=== PATIENT | female | born 1995 | race Caucasian/White ===

== ENCOUNTER 2018-05-29 08:09 | Emergency (ER) | payer OTHER, SELFPAY ==
[2018-05-29 08:10] VITALS: BP 122/71; PULSE 76; RESP 12; TEMP 36.4; BMI 20.7
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
== END 2018-05-29 08:44 | disposition home or self-care (01) ==
LOC: ED 08:28
PROVIDERS: Emergency Provider Emergency Medicine
DX: S39.012A Strain of muscle, fascia and tendon of lower back, initial encounter (principal); S29.012A Strain of muscle and tendon of back wall of thorax, initial encounter; V49.49XA Driver injured in collision with other motor vehicles in traffic accident, initial encounter; Y93.9 Activity, unspecified; Y92.410 Unspecified street and highway as the place of occurrence of the external cause; Y99.9 Unspecified external cause status
CPT/HCPCS: 99282

== ENCOUNTER → 2018-07-08 08:19 | Outpatient (CLI) | payer OTHER, SELFPAY ==
[2018-07-08 10:30] VITALS: BMI 22.3
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
== END ==
PROVIDERS: Referring Provider Physician Assistant Medical; Visit Provider Physician Assistant Medical
DX: J02.9 Acute pharyngitis, unspecified (principal)
CPT/HCPCS: 87081

== ENCOUNTER 2019-04-02 12:33 | Emergency (ER) | payer OTHER, SELFPAY ==
[2018-07-08 10:30] VITALS: BMI 22.3
[2019-04-02 12:34] VITALS: BP 136/70; PULSE 90; RESP 16; TEMP 36.8; O2SAT 99; BMI 23.6
--- NOTE | 2019-04-02 12:53 | EKG12_ITS ---
Test Reason : CP Blood Pressure : / mmHG Vent. Rate : 078 BPM Atrial Rate : 078 BPM P-R Int : 122 ms QRS Dur : 092 ms QT Int : 384 ms P-R-T Axes : 021 092 063 degrees QTc Int : 437 ms Normal sinus rhythm Rightward axis Borderline ECG Confirmed by SAÚL ESTEVEZ, STEPHAN ([id number]), newspaper editor SHELBI YOUNGBLOOD ([id number]) on 04/03/2019 9:24:28 AM Referred By: MICHAEL Confirmed By:STEPHAN HAYS MD
--- NOTE | 2019-04-02 12:53 | RAD_ITS ---
STUDY: X-RAY CHEST REASON FOR EXAM: Female, 23 years old. 4 day history of left-sided chest pain. TECHNIQUE: PA and lateral views of the chest. COMPARISON: None. FINDINGS: EKG electrodes are seen. The lungs are clear and expanded. There is no demonstrated pleural abnormality. Normal size heart. Normal mediastinum and dwayne. Normal visualized pulmonary arteries. Normal visualized aortic arch and descending thoracic aorta. Normal visualized thoracic spine. Normal visualized ribs, clavicles, and shoulders. There is no demonstrated abnormality of the visualized soft tissue structures of the upper abdomen. RAD/Chest PA and Lateral IMPRESSION: Normal x-ray examination of the chest. Electronically Signed: Baldo Shah, at 13:46 EDT , Service support ,
[2019-04-02 13:10] VITALS: O2SAT 99
[2019-04-02 13:22] LABS: Absolute Lymphocyte Count 1.96 X10^3/uL (0.83-4.51); Absolute Neutrophil Count 6.1 X10^3/uL (2.0-7.7); Basophil# 0.05 X10^3/uL; Basophil% 0.6 % (0-1); Eosinophil# 0.08 X10^3/uL; Eosinophils% 0.9 % (0-5); Hemoglobin 13.4 g/dL (12.0-15.0); Lymphocyte # 1.96 X10^3/ul (4.0); Lymphocyte % 22.4 % (19-41); Mean Corp Hgb Conc 32.7 g/dL (32-36); Mean Corpuscular Hgb 30.3 pg (27.0-32.0); Mean Corpuscular Volume 92.8 fL (81-99); Mean Platelet Vol. 12.1 fl (6.2-12.0); Monocyte# 0.53 X10^3/uL; Monocyte% 6.1 % (0-10); NRBC Flagged by Analyzer 0 % (0-5); Neutrophil % 69.7 % (47-70); Platelet Count 216 K/mm3 (150-450); RBC Distribution Width SD 41.4 fl (35.1-43.9); Red Blood Count 4.42 M/mm3 (4.2-5.4); White Blood Count 8.8 K/mm3 (4.4-11.0)
[2019-04-02 13:34] LABS: D-Dimer Quantitative (DVT/PE) < 0.27 FEU/ug/m (0.27-0.49)
[2019-04-02 13:40] LABS: Anion Gap 8 (5-15); BUN 12 mg/dL (7-18); BUN/Creat Ratio 15.8 RATIO (10-20); Chloride 109 mmol/L (98-107); Creatinine, Serum 0.76 mg/dL (0.55-1.02); EST Glomerular Filtration Rate 102 mL/min (>60); Est Glom Filt Rate - Afr Amer 123 mL/min (>60); Estimated Creatinine Clearance 105.36 ml/min; Glucose 83 mg/dL (74-106); Potassium 3.6 mmol/L (3.5-5.1); Sodium Level 144 mmol/L (136-145)
[2019-04-02 13:52] VITALS: BP 126/68; PULSE 80; RESP 18; O2SAT 97
[2019-04-02 14:00] LABS: Internal QC Validated? YES +Cl - CLEAR BKGD; Pregnancy, Serum, hCG Quali. NEGATIVE Negative
--- NOTE | 2019-04-02 14:20 | ED.VISSUMM ---
- ER Visit Summary Date of Service: 04/02/19 Chief Complaint: Chest pain History of Present Illness: The patient is a 23 F who presents emergency department with left sided anterior chest pain. Patient states she has had this several times in the past and had it evaluated nothing is been found. This started 4 days ago and she states that initially felt very sharp. She states that it turns into a dull constant discomfort. Does not appear to be positional to sometimes painful to touch. No shortness of breath sputum production or fevers. No prior history of DVT PE. She is a non-smoker. Physical Examination: Afebrile vital signs are stable Gen: Well-nourished well-developed Head: Normocephalic atraumatic Eyes: Perrl EOMI ENT: TMs clear no rhinorrhea moist mucous membranes Neck: Supple no lymphadenopathy no JVD nontender CVS: Regular rate rhythm no murmurs normal S1-S2 Respiratory: No distress clear to auscultation bilaterally mild left upper anterior chest wall tenderness to palpation Abdomen: Soft nontender nondistended normal bowel sounds no masses Back: Nontender Extremity: Nontender no edema Skin: Normal color no rash Neuro: alert orientated ?3 CN II-XII intact normal strength sensation reflexes gait cerebellar Psych: Normal affect normal mood Test Results: EKG shows sinus rhythm at a rate is 78. CBC chemistries negative. Troponin d-dimer and hCG negative. Chest x-ray negative. Emergency Department Course and Treatment: I do not believe this to be cardiac aortic or pulmonary nature. It is most likely chest wall related. Pleurisy versus costochondritis picture. Encourage her to follow-up. We talked about the possibility of needing to obtain an echocardiogram and I would encourage her to follow-up with primary care. Impression: 1. Acute chest wall pain This note was generated with Kobo dictation software. It may contain incorrect words, spelling, and punctuation that were not noted in review of the chart prior to signing ED Disposition - Plan for ED Patient: Disposition: Home or Assisted Living Instructions: Pleurisy, CHEST PAIN, NonCardiac Referrals: Moses Zamora MD [STAFF PHYSICIAN] - As Needed
[2019-04-02 14:46] VITALS: BP 128/64; PULSE 71; RESP 15; O2SAT 98
== END 2019-04-02 14:47 | disposition home or self-care (01) ==
PROVIDERS: Emergency Provider Emergency Medicine
DX: R07.89 Other chest pain (principal)
CPT/HCPCS: 71046; 80048; 84484; 84703; 85025; 85379; 93005; 99284; A4216

== ENCOUNTER 2021-01-22 20:53 | Emergency (ER) | payer OTHER, SELFPAY ==
[2021-01-22 20:53] VITALS: BP 129/80; PULSE 105; RESP 18; TEMP 36.7; O2SAT 99; BMI 23.3
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
== END 2021-01-22 22:28 | disposition home or self-care (01) ==
PROVIDERS: Emergency Provider Emergency Medicine; PCP Nurse Practitioner Family
DX: S00.33XA Contusion of nose, initial encounter (principal); Y04.2XXA Assault by strike against or bumped into by another person, initial encounter; Y93.9 Activity, unspecified; Y92.89 Other specified places as the place of occurrence of the external cause; Y99.0 Civilian activity done for income or pay; Z79.899 Other long term (current) drug therapy
CPT/HCPCS: 99282

== ENCOUNTER 2021-08-10 10:23 | Outpatient (CLI) | payer OTHER, SELFPAY ==
[2021-08-10 11:33] LABS: Absolute Lymphocyte Count 1.75 X10^3/uL (0.83-4.51); Absolute Neutrophil Count 5.1 X10^3/uL (2.0-7.7); Basophil# 0.04 X10^3/uL; Basophil% 0.5 % (0-1); Eosinophil# 0.09 X10^3/uL; Eosinophils% 1.2 % (0-5); Hematocrit 35.6 % (37-47); Hemoglobin 11.7 g/dL (12.0-15.0); Lymphocyte # 1.75 X10^3/ul (0.83-4.51); Lymphocyte % 23.3 % (19-41); Mean Corp Hgb Conc 32.9 g/dL (32-36); Mean Corpuscular Hgb 29.6 pg (27.0-32.0); Mean Corpuscular Volume 90.1 fL (81-99); Mean Platelet Vol. 12.6 fl (6.2-12.0); Monocyte% 6.7 % (0-10); NRBC Flagged by Analyzer 0 % (0-5); Platelet Count 232 K/mm3 (150-450); RBC Distribution Width CV 11.8 % (11.6-14.6); RBC Distribution Width SD 38.7 fl (35.1-43.9); Red Blood Count 3.95 M/mm3 (4.2-5.4); White Blood Count 7.5 K/mm3 (4.4-11.0)
[2021-08-10 12:44] LABS: HIV - WCH Non-Reactive (Nonreactive); Hepatitis B Surface Antigen Non-Reactive (Nonreactive); Hepatitis C Antibody Non-Reactive (Nonreactive); Rubella IgG Reactive (Nonreactive); Syphilis Antibodies Non-reactive
[2021-08-10 18:32] LABS: Amphetamine Urine VISTA NEGATIVE (<1000 ng/mL); Barbiturate Urine VISTA NEGATIVE (< 200 ng/mL); Benzodiazepine Urine VISTA NEGATIVE (< 200 ng/mL); Cocaine Urine VISTA NEGATIVE (< 300 ng/mL); Ecstacy Urine VISTA NEGATIVE (< 500 ng/mL); Methadone Urine VISTA NEGATIVE (< 300 ng/mL); PCP Urine VISTA NEGATIVE (< 25 ng/mL); THC Urine VISTA NEGATIVE (< 50 ng/mL); Vista UDS pH Range 6
[2021-08-13 00:07] LABS: Chlamydia By Nucleic Acid AMP Negative (Negative)
[2021-08-13 08:36] LABS: Gonococcus By Nucleic Acid AMP Negative (Negative)
[2021-08-14 10:06] LABS: HPV Reflexed? NOT INDICATED
== END 2021-08-10 23:59 | disposition short-term general hospital (02) ==
PROVIDERS: PCP Nurse Practitioner Family; Referring Provider Obstetrics & Gynecology; Visit Provider Obstetrics & Gynecology
DX: Z34.90 Encounter for supervision of normal pregnancy, unspecified, unspecified trimester (principal)
CPT/HCPCS: 36415; 80307; 85025; 86703; 86762; 86780; 86803; 86850; 86900; 86901; 87086; 87340; 87491; 87591; 88175; G0145

== ENCOUNTER → 2021-12-25 | Outpatient (CLI) | payer OTHER, SELFPAY ==
[2021-12-25 08:37] LABS: Absolute Lymphocyte Count 1.59 X10^3/uL (0.83-4.51); Absolute Neutrophil Count 7.5 X10^3/uL (2.0-7.7); Basophil# 0.04 X10^3/uL; Basophil% 0.4 % (0-1); Eosinophil# 0.09 X10^3/uL; Eosinophils% 0.9 % (0-5); Hematocrit 31.4 % (37-47); Hemoglobin 10.5 g/dL (12.0-15.0); Lymphocyte # 1.59 X10^3/ul (0.83-4.51); Lymphocyte % 16.1 % (19-41); Mean Corp Hgb Conc 33.4 g/dL (32-36); Mean Corpuscular Volume 92.6 fL (81-99); Mean Platelet Vol. 11.1 fl (6.2-12.0); Monocyte# 0.48 X10^3/uL; Monocyte% 4.9 % (0-10); NRBC Flagged by Analyzer 0 % (0-5); Neutrophil # 7.53 X10^3/uL (2.7-7.7); Neutrophil % 76.5 % (47-70); Platelet Count 163 K/mm3 (150-450); RBC Distribution Width CV 12.9 % (11.6-14.6); RBC Distribution Width SD 43.8 fl (35.1-43.9); Red Blood Count 3.39 M/mm3 (4.2-5.4); White Blood Count 9.9 K/mm3 (4.4-11.0)
[2021-12-25 09:20] LABS: Glucose Challenge Gest 1H 50g 145 mg/dL (70-140)
== END | disposition home or self-care (01) ==
LOC: LAB 08:16
PROVIDERS: Obstetrics & Gynecology; PCP Nurse Practitioner Family; Referring Provider Obstetrics & Gynecology; Visit Provider Obstetrics & Gynecology
DX: Z34.92 Encounter for supervision of normal pregnancy, unspecified, second trimester (principal); Z13.1 Encounter for screening for diabetes mellitus
CPT/HCPCS: 36415; 82950; 85025

== ENCOUNTER 2021-12-28 08:40 | Outpatient (CLI) | payer OTHER, SELFPAY ==
[2021-12-28 08:57] VITALS: PULSE 89; O2SAT 99; BMI 28.7
[2021-12-28 08:59] VITALS: BP 130/71; PULSE 84
[2021-12-28 09:02] VITALS: PULSE 89; O2SAT 99
[2021-12-28 09:37] LABS: ROM Internal Control Test YES-OK TO RESULT pt. (Internal QC); ROM Patient Test Negative (Negative)
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
== END 2021-12-28 09:58 | disposition home or self-care (01) ==
LOC: WPOUT 08:47 → WP 08:48
PROVIDERS: PCP Nurse Practitioner Family; Referring Provider Obstetrics & Gynecology; Visit Provider Obstetrics & Gynecology
DX: O47.03 False labor before 37 completed weeks of gestation, third trimester (principal); O99.343 Other mental disorders complicating pregnancy, third trimester; F32.A Depression, unspecified; Z79.899 Other long term (current) drug therapy; Z3A.29 29 weeks gestation of pregnancy
CPT/HCPCS: 59025; 59050; 84112; 99218; G0378

== ENCOUNTER → 2022-01-07 | Outpatient (CLI) | payer OTHER, SELFPAY ==
[2022-01-07 10:31] LABS: Glucose GTT-Gestation. Fasting 82 mg/dL (<105)
[2022-01-07 11:44] LABS: Glucose GTT-Gestational 1 Hr 129 mg/dL (<190)
[2022-01-07 13:04] LABS: Glucose GTT-Gestational 2 Hr 123 mg/dL (<165)
[2022-01-07 13:34] LABS: Glucose GTT-Gestational 3 Hr 109 L (<145)
== END | disposition home or self-care (01) ==
LOC: LAB 09:43
PROVIDERS: PCP Nurse Practitioner Family; Visit Provider Obstetrics & Gynecology
DX: Z13.1 Encounter for screening for diabetes mellitus (principal)
CPT/HCPCS: 36415; 82951; 82952

== ENCOUNTER → 2022-02-15 | Outpatient (CLI) | payer OTHER, SELFPAY ==
[2022-02-15 09:28] LABS: Absolute Lymphocyte Count 1.53 X10^3/uL (0.83-4.51); Absolute Neutrophil Count 5.6 X10^3/uL (2.0-7.7); Basophil# 0.04 X10^3/uL; Basophil% 0.5 % (0-1); Eosinophil# 0.08 X10^3/uL; Hematocrit 33.6 % (37-47); Hemoglobin 11.2 g/dL (12.0-15.0); Lymphocyte # 1.53 X10^3/ul (0.83-4.51); Lymphocyte % 19.3 % (19-41); Mean Corp Hgb Conc 33.3 g/dL (32-36); Mean Corpuscular Hgb 31.4 pg (27.0-32.0); Mean Corpuscular Volume 94.1 fL (81-99); Mean Platelet Vol. 12.1 fl (6.2-12.0); Monocyte% 7.6 % (0-10); NRBC Flagged by Analyzer 0 % (0-5); Neutrophil # 5.59 X10^3/uL (2.7-7.7); Neutrophil % 70.3 % (47-70); Platelet Count 139 K/mm3 (150-450); RBC Distribution Width CV 13.4 % (11.6-14.6); RBC Distribution Width SD 46.4 fl (35.1-43.9); Red Blood Count 3.57 M/mm3 (4.2-5.4); White Blood Count 7.9 K/mm3 (4.4-11.0)
== END | disposition home or self-care (01) ==
LOC: LAB 08:48
PROVIDERS: PCP Nurse Practitioner Family; Referring Provider Obstetrics & Gynecology; Visit Provider Obstetrics & Gynecology
DX: D64.9 Anemia, unspecified (principal)
CPT/HCPCS: 36415; 85025

== ENCOUNTER → 2022-02-24 | Outpatient (CLI) | payer OTHER, SELFPAY | END | disposition home or self-care (01) | LOC: LABSPEC 10:45 | PROVIDERS: PCP Nurse Practitioner Family; Visit Provider Obstetrics & Gynecology | DX: Z34.02 Encounter for supervision of normal first pregnancy, second trimester (principal) | CPT/HCPCS: 87081 ==

== ENCOUNTER 2022-03-12 17:23 | Inpatient (IN) | payer OTHER, SELFPAY ==
[2022-03-12] VITALS (36 sets, daily range): BP systolic 117–156; BP diastolic 55–88; PULSE 67–90; TEMP 36.3–36.8; O2SAT 98–99; BMI 32.1
[2022-03-12 17:19] LABS: ROM Internal Control Test YES-OK TO RESULT pt. (Internal QC)
[2022-03-12 17:20] LABS: ROM Patient Test POSITIVE (Negative)
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
[2022-03-12] MEDS: Lactated Ringers 1,000 ML 50 ML IV (18:05)
[2022-03-12 18:57] LABS: Absolute Lymphocyte Count 1.83 X10^3/uL (0.83-4.51); Absolute Neutrophil Count 8.3 X10^3/uL (2.0-7.7); Basophil# 0.04 X10^3/uL; Basophil% 0.4 % (0-1); Eosinophil# 0.05 X10^3/uL; Eosinophils% 0.5 % (0-5); Hematocrit 33.8 % (37-47); Hemoglobin 11.6 g/dL (12.0-15.0); Lymphocyte # 1.83 X10^3/ul (0.83-4.51); Lymphocyte % 16.5 % (19-41); Mean Corp Hgb Conc 34.3 g/dL (32-36); Mean Corpuscular Hgb 31.1 pg (27.0-32.0); Mean Corpuscular Volume 90.6 fL (81-99); Mean Platelet Vol. 13.1 fl (6.2-12.0); Monocyte# 0.81 X10^3/uL; Monocyte% 7.3 % (0-10); NRBC Flagged by Analyzer 0 % (0-5); Neutrophil # 8.25 X10^3/uL (2.7-7.7); Neutrophil % 74.4 % (47-70); Platelet Count 139 K/mm3 (150-450); RBC Distribution Width CV 13.2 % (11.6-14.6); RBC Distribution Width SD 43.6 fl (35.1-43.9); Red Blood Count 3.73 M/mm3 (4.2-5.4); White Blood Count 11.1 K/mm3 (4.4-11.0)
[2022-03-12 19:06] LABS: Protein, Urine (Random) < 6.0 mg/dL (<11.9)
[2022-03-12] MEDS: LACTATED RINGERS 500 ML 999 ML IV ×2 (19:14→21:39)
[2022-03-12 20:01] LABS: ALB/GLOB Ratio 0.8 RATIO (0.9-2.4); AST(SGOT) 16 U/L (15-37); Alanine Aminotransfer ALT/SGPT 14 U/L (13-56); Albumin, Serum 2.9 g/dL (3.2-5.0); Alkaline Phosphatase 293 U/L (45-117); Anion Gap 9 (5-15); BUN 9 mg/dL (7-18); BUN/Creat Ratio 13.2 RATIO (10-20); Calcium,Total 9.1 mg/dL (8.5-10.1); Chloride 109 mmol/L (98-107); Creatinine, Serum 0.68 mg/dL (0.55-1.02); EST Glomerular Filtration Rate 113 mL/min (>60); Est Glom Filt Rate - Afr Amer 137 mL/min (>60); Estimated Creatinine Clearance 114.79 ml/min; Globulin 3.8 g/dL (2.2-4.2); Glucose 78 mg/dL (74-106); Potassium 3.6 mmol/L (3.5-5.1); Protein, Total 6.7 g/dL (6.4-8.2); Sodium Level 137 mmol/L (136-145); Uric Acid 5.5 mg/dL (2.6-6.0)
[2022-03-12] MEDS: fentaNYL-bupivacaine (epidural) 100 ML BAG EPIDURAL (22:42)
[2022-03-13] VITALS (25 sets, daily range): BP systolic 113–147; BP diastolic 61–88; PULSE 60–96; RESP 16–17; TEMP 36.4–37.1; O2SAT 96–99
[2022-03-13] MEDS: Lactated Ringers 1,000 ML 200 ML IV (02:31)
[2022-03-13] MEDS: fentaNYL-bupivacaine (epidural) 100 ML BAG EPIDURAL (04:17)
[2022-03-13] MEDS: Oxytocin 30 units/NS 500 ml 30 UNITS/500 ML IV.SOLN 334 UNITS IV (06:03)
--- NOTE | 2022-03-13 06:16 | EX.PCM.OBRPT ---
Assessment & Plan (1) Mild anemia: (2) Abnormal glucose affecting : COMMENT: abnormal 1 hr, needs 3 hr GCT (3) Supervision of normal : QUALIFIERS: Normal : normal first Trimester: second trimester Qualified Code(s): Z34.02 - Encounter for supervision of normal first , second trimester COMMENT: PRR PRABHA: 03/17/22 surprise Spouse: Antonio (4) : QUALIFIERS: Weeks of gestation: 38 weeks Qualified Code(s): Z3A.38 - 38 weeks gestation of COMMENT: GBS Negative, anatomy nl, declines genetic and carrier, ntd screening. (5) Depression: QUALIFIERS: Depression Type: unspecified Qualified Code(s): F32.A - Depression, unspecified COMMENT: previously on Prozac. in counseling. stable Maternal Data Information PRABHA Calculator Estimated Delivery Date Method Current WG Current Estimate 03/17/22 LMP (Certain) 39w 3d Vaginal Delivery Maternal Presentation Maternal Presentation: Spontaneous Rupture of Membranes Operative Information Date of Procedure: 03/13/22 Pre-Operative Diagnosis: 39 weeks 3 days , spontaneous rupture of membranes and active labor Post-Operative Diagnosis: 39 weeks 3 days , spontaneous rupture of membranes and active labor Type of Anesthesia: Epidural Drain: Patino to straight drain Estimated Blood Loss: 150cc Findings Description of Procedure: Patient began pushing and delivered the head in the JOSE J presentation. The head was delivered atraumatically and a loose nuchal cord ?1 was identified and easily reduced over the 's head. The anterior and posterior shoulders delivered without complication followed by the rest of the infant and the was placed on the maternal abdomen. Delayed cord clamping was employed for approximately 60 seconds. Cord was clamped and cut and gentle traction was applied to the cord and the placenta delivered spontaneously immediately following it was noted to be intact with three-vessel cord. The perineum and vagina were inspected and noted to have a 1st degree laceration that was repaired with a 3-0 vicryl. EBL was 150cc. Patient and infant tolerated delivery well. Presentation: Vertex Amniotic Membrane Rupture Type: Spontaneous Amniotic Fluid Description: Clear Placental Delivery Description: Spontaneous Placenta Disposition: [facility] Cord Vessel Description: 3 Vessels Cord Entanglement: Around neck x 1, loose Nuchal Cord Compression: Without compression A Gender: Female (1 minute): 8 (5 minute): 9 Delayed Cord Clamping: Yes Post Vaginal Delivery Medications Given After Delivery: IM Hemabate Episiotomy Description: None Laceration: 1st degree Complication Complications: None Multi Select Codes Urinary/Genital Urinary/Genital CPT Codes: 63786 Vaginal Delivery [facility]
--- NOTE | 2022-03-13 06:23 | PCM.DC ---
Discharge Instructions Diet Discharge Diet: No restrictions Activity Discharge Activity: Return to Normal Activity, May Not Drive (while taking narcotic pain medications.) and May Shower May resume sexual activity in: 4-6 weeks Dressing / Incision Call your doctor if your incision/area has: Continuous Slow Oozing, Sudden Increased Bleeding, Increased Pain/ Swelling, Increased Redness and Foul Smelling Discharge Follow Up Care Please Follow Up With: Mary Jo Toribio, When: Call [phone] to make an appointment with your doctor in 6 weeks. If you had elevated blood pressure or 4th degree laceration, you will need to be seen in 2 weeks. Test Results: Test results from this visit will be discussed in further detail at your follow-up appointment, if applicable. Discharge Plan Admission Admit Date/Time: 03/12/22 17:23 Primary Reason for Your Visit: vaginal delivery Attending Provider: Mary Jo Toribio Primary Care Provider: Moe Ambriz NP Discharge Orders/Prescriptions Prescriptions: No Action cholecalciferol (vitamin D3) 125 mcg (5,000 unit) capsule 125 mcg PO DAILY PNV-DHA 27 mg iron-1 mg -300 mg capsule 1 cap PO DAILY otfnyiboim-oewueeecbaqct-whvb [Fioricet] 50-300-40 mg capsule 1 cap PO Q8H PRN (Reason: pain) Qty: 14 0RF Referrals / Follow Up: Moe Ambriz NP, [facility] [Primary Care Provider] - Disposition Disposition (needs filled in before D/C Order can be placed): Home, Self Care
[2022-03-13] MEDS: Ibuprofen 600 MG Tablet PO (12:51)
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
[2022-03-14] VITALS: BP 131/76; PULSE 81; RESP 17; TEMP 36.7; O2SAT 97
[2022-03-14 04:05] VITALS: BP 129/79; PULSE 79; RESP 17; TEMP 36.8; O2SAT 97
[2022-03-14 06:28] VITALS: BP 128/78; PULSE 74; RESP 16; TEMP 36.4; O2SAT 98
--- NOTE | 2022-03-14 10:03 | PN.OBGYN_ITS ---
Subjective Subjective Patient doing well without complaints. Tolerating PO. Ambulating and voiding without difficulty. Feeding well. Denies chest pain, shortness of breath, calf pain/swelling, fevers, chills, lightheadedness. Objective Data Objective Data Vital Signs: Vital Signs Temp Pulse Resp BP Pulse Ox O2 Del Method 98.3 F 79 17 129/79 H 97 Room Air 03/14/22 04:05 03/14/22 04:05 03/14/22 04:05 03/14/22 04:05 03/14/22 04:05 03/14/22 04:05 Oxygen Delivery Method Room Air Weight: 192 lb 10.944 oz Body Mass Index (BMI) 32.1 Intake & Output: Intake and Output for Last 24 Hours 03/12/22 03/13/22 03/14/22 23:59 23:59 23:59 Intake Total 678.33 / 678.33 2605.00 / 2605.00 Output Total 900 / 900 3250 / 3250 Balance -221.67 / -221.67 -645.00 / -645.00 Lab / Micro Data Result Diagrams: 03/12/22 18:15 03/12/22 18:15 Micro: Microbiology 03/12/22 18:15 Nasal Secretion SARS-CoV-2 Antigen (Rapid) - Final ROS Constitutional Constitutional: Denies chills, fatigue, fever(s), poor appetite or weakness Eyes Eyes: Denies blurry vision, change in vision, seeing flashes or spots in vision ENT HEENT: Denies dizziness, headache(s), loss taste/smell or sore throat Cardiovascular Cardiovascular: Denies chest pain, dizziness, dyspnea, irregular heart rhythm, palpitations or rapid heart rate Respiratory/Chest Respiratory/Chest: Denies chest tightness, cough, dyspnea or breast pain Gastrointestinal Gastrointestinal: Denies abdominal pain, constipation or vomiting Genitourinary Genitourinary: Denies dysuria or flank pain Musculoskeletal Musculoskeletal: Denies difficulty walking, joint pain, limited range of motion or numbness Neurologic Neurologic: Denies abnormal movements, abnormal speech, dizziness, numbness, seizure-like activity or syncope Psychiatric Psychiatric: Denies anxiety, behavioral changes, change in appetite, confusion, depression or suicidal thoughts Physical Exam Const alert, oriented x3 and no apparent distress General Appearance: cooperative and comfortable Resp normal respiratory effort Cardio regular rate GI normal to inspection, nondistended, normoactive bowel sounds GI Narrative: uterus is firm below umbilicus Palpation: soft Bimanual Exam - Adnexa, Other: Negative for cul-de-sac fullness Back/Spine no CVA tenderness and thoraco-lumbar ROM normal Extremity normal to inspection, no clubbing, cyanosis or edema, no calf tenderness and no pedal edema Psych mental status grossly normal, thought process normal, cooperative, affect n ormal, speech normal, activity/motor behavior normal, denies homicidal ideation and denies suicidal ideation Assessment & Plan (1) Status post vaginal delivery: COMMENT: elsi girl Lamin 03/13/22- RADHA PLAN: s/p PPD # 1 1. routine post delivery care 2. breast feeding- support given 3. rh positive 4. rubella immune 5. ok for discharge to home today.
== END 2022-03-14 10:50 | disposition home or self-care (01) | DRG 807 ==
LOC: WPOUT 17:24 → WP 17:24
PROVIDERS: Admitting Provider Obstetrics & Gynecology; PCP Nurse Practitioner Family; Visit Provider Obstetrics & Gynecology
DX: O99.02 Anemia complicating childbirth (principal); Z37.0 Single live birth; O99.344 Other mental disorders complicating childbirth; F32.A Depression, unspecified; Z3A.39 39 weeks gestation of pregnancy; O69.81X0 Labor and delivery complicated by cord around neck, without compression, not applicable or unspecified; O70.0 First degree perineal laceration during delivery
CPT/HCPCS: 59025; 59050; 80053; 82570; 84112; 84156; 84550; 85025; 86850; 86900; 86901; 87811; 99218; J7120; G0378

== ENCOUNTER 2022-04-02 10:52 | Outpatient (CLI) | payer OTHER, SELFPAY | END 2022-04-02 11:37 | disposition home or self-care (01) | LOC: WPOUT 10:56 → WP 10:56 | PROVIDERS: PCP Nurse Practitioner Family; Visit Provider Obstetrics & Gynecology | DX: Z39.1 Encounter for care and examination of lactating mother (principal) | CPT/HCPCS: 96158 ==

== ENCOUNTER → 2023-07-06 | Outpatient (CLI) | payer OTHER, SELFPAY ==
[2023-07-06 13:48] LABS: Mucous, Urine 0 SEEN /hpf (<or=2+); Red Blood Cells-Urine 0 SEEN /hpf (0-5); White Blood Cells 0 SEEN /hpf (0-5)
[2023-07-06 15:35] LABS: Absolute Lymphocyte Count 2.29 X10^3/uL (0.83-4.51); Absolute Neutrophil Count 5.9 X10^3/uL (2.0-7.7); Basophil# 0.03 X10^3/uL; Basophil% 0.3 % (0-1); Eosinophil# 0.07 X10^3/uL; Eosinophils% 0.8 % (0-5); Hematocrit 37.2 % (37-47); Hemoglobin 12.6 g/dL (12.0-15.0); Lymphocyte # 2.29 X10^3/ul (0.83-4.51); Lymphocyte % 26.2 % (19-41); Mean Corp Hgb Conc 33.9 g/dL (32-36); Mean Corpuscular Hgb 30.8 pg (27.0-32.0); Mean Platelet Vol. 12.3 fl (6.2-12.0); Monocyte# 0.46 X10^3/uL; Monocyte% 5.3 % (0-10); NRBC Flagged by Analyzer 0 % (0-5); Neutrophil # 5.88 X10^3/uL (2.7-7.7); Neutrophil % 67.2 % (47-70); Platelet Count 236 K/mm3 (150-450); RBC Distribution Width SD 40.2 fl (35.1-43.9); Red Blood Count 4.09 M/mm3 (4.2-5.4); White Blood Count 8.8 K/mm3 (4.4-11.0)
[2023-07-06 15:45] LABS: Color, Urine Yellow (Yellow); Glucose, Dipstick Normal (Normal); Ketone-Dipstick 5 mg/dl (Negative); Leukocyte Esterase-Dipstick Negative /ul (Negative); Nitrite-Dipstick Negative (Negative); Occult Blood-Urine Negative /ul (Negative); Protein-Dipstick Negative (Negative); Urine Bilirubin Dipstick Negative (Negative); Urine Clarity Clear (Clear); Urine Urobilinogen Normal (Normal); Urine pH 6.5 (5.0 - 8.0)
[2023-07-06 15:56] LABS: Bacteria RARE /hpf (None Seen); Squamous Epithelial Cells - UA 0-5 SEEN /hpf (5-10)
[2023-07-06 16:07] LABS: ALB/GLOB Ratio 1.2 RATIO (0.9-2.4); AST(SGOT) 8 U/L (15-37); Alanine Aminotransfer ALT/SGPT 17 U/L (13-56); Albumin, Serum 3.9 g/dL (3.2-5.0); Alkaline Phosphatase 70 U/L (45-117); Anion Gap 7 (5-15); BUN 10 mg/dL (7-18); BUN/Creat Ratio 17.2 RATIO (10-20); Calcium,Total 8.6 mg/dL (8.5-10.1); Chloride 107 mmol/L (98-107); Cholesterol 121 mg/dL (200); Creatinine, Serum 0.58 mg/dL (0.55-1.02); EST Glomerular Filtration Rate 134 mL/min (>60); Est Glom Filt Rate - Afr Amer 162 mL/min (>60); Globulin 3.3 g/dL (2.2-4.2); Glucose 86 mg/dL (74-106); High Density Lipoprotein 50 mg/dL; Potassium 3.8 mmol/L (3.5-5.1); Protein, Total 7.2 g/dL (6.4-8.2); Sodium Level 137 mmol/L (136-145); Triglycerides 34 mg/dL; Very Low Density Lipoprotein 7 mg/dL (5-40)
== END | disposition home or self-care (01) ==
LOC: BIMLAB 13:47
PROVIDERS: PCP Internal Medicine; Referring Provider Internal Medicine; Visit Provider Internal Medicine
DX: Z13.6 Encounter for screening for cardiovascular disorders (principal); R42 Dizziness and giddiness
CPT/HCPCS: 36415; 80053; 80061; 81001; 85025

== ENCOUNTER → 2023-07-20 | Outpatient (CLI) | payer OTHER, SELFPAY ==
[2023-07-20 10:33] LABS: Absolute Neutrophil Count 6.2 X10^3/uL (2.0-7.7); Basophil# 0.04 X10^3/uL; Basophil% 0.5 % (0-1); Eosinophil# 0.06 X10^3/uL; Eosinophils% 0.7 % (0-5); Hematocrit 35.7 % (37-47); Hemoglobin 11.7 g/dL (12.0-15.0); Lymphocyte % 18.2 % (19-41); Mean Corp Hgb Conc 32.8 g/dL (32-36); Mean Corpuscular Hgb 29.9 pg (27.0-32.0); Mean Corpuscular Volume 91.3 fL (81-99); Mean Platelet Vol. 12.2 fl (6.2-12.0); Monocyte# 0.43 X10^3/uL; Monocyte% 5.2 % (0-10); NRBC Flagged by Analyzer 0 % (0-5); Neutrophil # 6.16 X10^3/uL (2.7-7.7); Platelet Count 209 K/mm3 (150-450); RBC Distribution Width CV 12.2 % (11.6-14.6); RBC Distribution Width SD 40.8 fl (35.1-43.9); Red Blood Count 3.91 M/mm3 (4.2-5.4); White Blood Count 8.2 K/mm3 (4.4-11.0)
[2023-07-20 11:53] LABS: HIV - WCH Non-Reactive (Nonreactive); Hepatitis B Surface Antigen Non-Reactive (Nonreactive); Hepatitis C Antibody Non-Reactive (Nonreactive); Rubella IgG Reactive (Nonreactive); Syphilis Antibodies Non-reactive
[2023-07-22 06:08] LABS: Chlamydia By Nucleic Acid AMP Negative (Negative); Gonococcus By Nucleic Acid AMP Negative (Negative)
== END | disposition home or self-care (01) ==
PROVIDERS: PCP Internal Medicine; Referring Provider Registered Nurse; Visit Provider Registered Nurse
DX: Z34.90 Encounter for supervision of normal pregnancy, unspecified, unspecified trimester (principal)
CPT/HCPCS: 36415; 85025; 86703; 86762; 86780; 86803; 86850; 86900; 86901; 87086; 87340; 87491; 87591

== ENCOUNTER → 2023-12-06 | Outpatient (CLI) | payer OTHER, SELFPAY ==
[2023-12-06 09:26] LABS: Absolute Lymphocyte Count 1.56 X10^3/uL (0.83-4.51); Absolute Neutrophil Count 5.9 X10^3/uL (2.0-7.7); Basophil# 0.04 X10^3/uL; Basophil% 0.5 % (0-1); Eosinophil# 0.09 X10^3/uL; Eosinophils% 1.1 % (0-5); Hematocrit 35.3 % (37-47); Hemoglobin 11.5 g/dL (12.0-15.0); Lymphocyte # 1.56 X10^3/ul (0.83-4.51); Lymphocyte % 19.4 % (19-41); Mean Corp Hgb Conc 32.6 g/dL (32-36); Mean Corpuscular Hgb 30.3 pg (27.0-32.0); Mean Corpuscular Volume 93.1 fL (81-99); Mean Platelet Vol. 12.1 fl (6.2-12.0); Monocyte# 0.43 X10^3/uL; Monocyte% 5.4 % (0-10); NRBC Flagged by Analyzer 0 % (0-5); Neutrophil # 5.85 X10^3/uL (2.7-7.7); Neutrophil % 72.9 % (47-70); Platelet Count 156 K/mm3 (150-450); RBC Distribution Width CV 13.2 % (11.6-14.6); RBC Distribution Width SD 44.3 fl (35.1-43.9); Red Blood Count 3.79 M/mm3 (4.2-5.4)
[2023-12-06 09:58] LABS: Glucose Challenge Gest 1H 50g 94 mg/dL (70-140)
[2023-12-06 11:50] LABS: HIV - WCH Non-Reactive (Nonreactive); Syphilis Antibodies Non-reactive
== END | disposition home or self-care (01) ==
PROVIDERS: PCP Internal Medicine; Referring Provider Registered Nurse; Visit Provider Registered Nurse
DX: O09.90 Supervision of high risk pregnancy, unspecified, unspecified trimester (principal); Z3A.00 Weeks of gestation of pregnancy not specified; Z13.1 Encounter for screening for diabetes mellitus
CPT/HCPCS: 36415; 82950; 85025; 86703; 86780

== ENCOUNTER → 2024-02-01 | Outpatient (CLI) | payer OTHER, SELFPAY | END | disposition home or self-care (01) | PROVIDERS: PCP Internal Medicine; Referring Provider Obstetrics & Gynecology; Visit Provider Obstetrics & Gynecology | DX: O09.92 Supervision of high risk pregnancy, unspecified, second trimester (principal); Z3A.00 Weeks of gestation of pregnancy not specified | CPT/HCPCS: 87081 ==

== ENCOUNTER 2024-02-22 07:39 | Inpatient (IN) | payer OTHER, SELFPAY ==
[2024-02-22] VITALS (15 sets, daily range): BP systolic 111–130; BP diastolic 60–76; PULSE 66–85; RESP 15–20; TEMP 36.3–36.9; O2SAT 96–97; BMI 31.0
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
[2024-02-22 08:06] LABS: Absolute Lymphocyte Count 1.74 X10^3/uL (0.83-4.51); Absolute Neutrophil Count 7.1 X10^3/uL (2.0-7.7); Basophil# 0.04 X10^3/uL; Basophil% 0.4 % (0-1); Eosinophil# 0.07 X10^3/uL; Eosinophils% 0.7 % (0-5); Hematocrit 36.4 % (37-47); Hemoglobin 12.6 g/dL (12.0-15.0); Lymphocyte # 1.74 X10^3/ul (0.83-4.51); Lymphocyte % 18.2 % (19-41); Mean Corp Hgb Conc 34.6 g/dL (32-36); Mean Corpuscular Hgb 31.2 pg (27.0-32.0); Mean Corpuscular Volume 90.1 fL (81-99); Mean Platelet Vol. 12.6 fl (6.2-12.0); Monocyte# 0.55 X10^3/uL; Monocyte% 5.7 % (0-10); NRBC Flagged by Analyzer 0 % (0-5); Neutrophil # 7.11 X10^3/uL (2.7-7.7); Neutrophil % 74.4 % (47-70); Platelet Count 126 K/mm3 (150-450); RBC Distribution Width CV 12.9 % (11.6-14.6); RBC Distribution Width SD 42.5 fl (35.1-43.9); Red Blood Count 4.04 M/mm3 (4.2-5.4); White Blood Count 9.6 K/mm3 (4.4-11.0)
[2024-02-22] MEDS: Oxytocin 10 UNITS/ML Vial IM (09:49)
--- NOTE | 2024-02-22 09:59 | EX.PCM.OBRPT ---
Assessment & Plan (1) Supervision of high-risk : QUALIFIERS: Trimester: second trimester Qualified Code(s): O09.92 - Supervision of high risk , unspecified, second trimester COMMENT: PRR , PRABHA 02/26/23, SURPRISE!! PC Lamin, Antonio (2) : QUALIFIERS: Weeks of gestation: 38 weeks Qualified Code(s): Z3A.38 - 38 weeks gestation of COMMENT: Neg GBS genetic & carrier testing, declines, nl anatomy (3) Mild anemia: COMMENT: starting at 11.7 for NOB (4) Depression: QUALIFIERS: Depression Type: unspecified Qualified Code(s): F32.A - Depression, unspecified COMMENT: previously on Prozac. in counseling. stable Maternal Data Information PRABHA Calculator Estimated Delivery Date Method Current WG Current Estimate 02/27/24 LMP (Certain) 39w 2d Final PRABHA: 02/27/24 Final PRABHA Source: LMP Gestational age: 39 weeks 2 days Vaginal Delivery Maternal Presentation Maternal Presentation: Active Labor Type of Induction: Amniotomy Operative Information Date of Procedure: 02/22/24 Pre-Operative Diagnosis: @ 39 weeks 2 days, active labor Post-Operative Diagnosis: @ 39 weeks 2 days, active labor Surgery / Procedure Performed: Spontaneous Vaginal Delivery Type of Anesthesia: None Estimated Blood Loss: 100cc Time of Delivery: 09:47 Findings Description of Procedure: Patient began pushing and delivered the head in the OA presentation. The head was delivered atraumatically. The anterior and posterior shoulders delivered without complication followed by the rest of the and the infant was placed on the maternal abdomen. Delayed cord clamping was employed for approximately 60 seconds. Cord was clamped and cut and gentle traction was applied to the cord and the placenta delivered spontaneously immediately following it was noted to be intact with three-vessel cord. The perineum and vagina were inspected and noted to be intact. EBL was 100 cc. Patient and tolerated delivery well. baby boy Presentation: Vertex Amniotic Membrane Rupture Type: Spontaneous Amniotic Fluid Description: Clear Placental Delivery Description: Spontaneous Placenta Disposition: [facility] Cord Vessel Description: 3 Vessels Cord Entanglement: None A Gender: Male (1 minute): 8 (5 minute): 9 Delayed Cord Clamping: Yes Post Vaginal Delivery Medications Given After Delivery: IM Pitocin Episiotomy Description: None Laceration: None Complication Complications: None Multi Select Codes Urinary/Genital Urinary/Genital CPT Codes: 45256 Vaginal Delivery [facility]
--- NOTE | 2024-02-22 10:01 | DCINST_ITS ---
Discharge Instructions Diet Discharge Diet: No restrictions Activity Discharge Activity: Return to Normal Activity, May Not Drive (while taking narcotic pain medications.) and May Shower May resume sexual activity in: 4-6 weeks Dressing / Incision Call your doctor if your incision/area has: Continuous Slow Oozing, Sudden Increased Bleeding, Increased Pain/ Swelling, Increased Redness and Foul Smelling Discharge Follow Up Care Please Follow Up With: Mary Jo Toribio DO When: Call [phone] to make an appointment with your doctor in 6 weeks. If you had elevated blood pressure or 4th degree laceration, you will need to be seen in 2 weeks. Test Results: Test results from this visit will be discussed in further detail at your follow- up appointment, if applicable. Discharge Plan Admission Admit Date/Time: 02/22/24 07:39 Attending Provider: Shea Quintana Primary Care Provider: Tawana Marroquin Discharge Orders/Prescriptions Prescriptions: No Action PNV-DHA 27 mg iron-1 mg -300 mg capsule 1 cap PO DAILY Referrals / Follow Up: Tawana Marroquin MD [Primary Care Provider] -
[2024-02-22] MEDS: Oxytocin 15 Units/NS 250ml 15 UNITS/250 ML IV.SOLN 83 UNITS IV (10:05)
[2024-02-22 10:20] LABS: Syphilis Antibodies Non-reactive
[2024-02-23 04:24] VITALS: BP 117/69; PULSE 79; RESP 15; TEMP 36.5; O2SAT 98
[2024-02-23 08:00] VITALS: BP 118/75; PULSE 76; RESP 15; TEMP 36.2; O2SAT 98
--- NOTE | 2024-02-23 08:00 | PCM.PN.BLA ---
Physical Exam Const alert, oriented x3 and no apparent distress HEENT Head and Scalp: atraumatic Resp normal respiratory effort GI soft to palpation and non-tender Bimanual Exam - Vag & Uterus: uterus non-tender Uterus Palpation: uterus fundus firm (below Umbilicus) Assessment & Plan Assessment/Plan (1) Vaginal delivery: PLAN: Plan s/p PPD # 1 1. routine post delivery care 2. breast feeding- support given 3. rh positive 4. rubella immune
[2024-02-23 12:47] VITALS: BP 121/68; PULSE 83; RESP 16; TEMP 36.3; O2SAT 97
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
--- NOTE | 2024-03-01 09:51 | NURSING ---
F/up phone call performed. Pt. denies s+s of complications, no concerns about her lochia. 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 Denies visit at this time. Encouragement and support given. No questions had at this time.
== END 2024-02-23 15:00 | disposition home or self-care (01) | DRG 807 ==
LOC: WPOUT 07:46 → WP 07:48
PROVIDERS: Admitting Provider Obstetrics & Gynecology; PCP Internal Medicine; Referring Provider Obstetrics & Gynecology; Visit Provider Obstetrics & Gynecology
DX: O42.92 Full-term premature rupture of membranes, unspecified as to length of time between rupture and onset of labor (principal); Z37.0 Single live birth; O99.344 Other mental disorders complicating childbirth; F32.A Depression, unspecified; Z3A.39 39 weeks gestation of pregnancy
CPT/HCPCS: 59025; 59050; 85025; 86780; 86850; 86900; 86901; 99221; G0378

== ENCOUNTER → 2024-04-03 | Outpatient (CLI) | payer OTHER, SELFPAY ==
[2024-04-05 13:53] LABS: HPV Reflexed? NOT INDICATED
== END | disposition home or self-care (01) ==
LOC: LABSPEC 11:57
PROVIDERS: PCP Internal Medicine; Referring Provider Obstetrics & Gynecology; Visit Provider Obstetrics & Gynecology
DX: Z12.4 Encounter for screening for malignant neoplasm of cervix (principal)
CPT/HCPCS: 88175; G0145

== ENCOUNTER → 2024-10-31 | Outpatient (CLI) | payer OTHER, SELFPAY ==
[2024-10-31 10:33] LABS: Absolute Lymphocyte Count 2.11 X10^3/uL (0.83-4.51); Absolute Neutrophil Count 3.2 X10^3/uL (2.0-7.7); Basophil# 0.05 X10^3/uL; Basophil% 0.8 % (0-1); Eosinophil# 0.17 X10^3/uL; Eosinophils% 2.9 % (0-5); Hematocrit 39.7 % (37-47); Hemoglobin 13.1 g/dL (12.0-15.0); Lymphocyte # 2.11 X10^3/ul (0.83-4.51); Lymphocyte % 35.5 % (19-41); Mean Corpuscular Hgb 30.1 pg (27.0-32.0); Mean Corpuscular Volume 91.3 fL (81-99); Mean Platelet Vol. 12.1 fl (6.2-12.0); Monocyte# 0.43 X10^3/uL; Monocyte% 7.2 % (0-10); NRBC Flagged by Analyzer 0 % (0-5); Neutrophil # 3.17 X10^3/uL (2.7-7.7); Neutrophil % 53.4 % (47-70); Platelet Count 207 K/mm3 (150-450); RBC Distribution Width CV 12.6 % (11.6-14.6); RBC Distribution Width SD 41.8 fl (35.1-43.9); Red Blood Count 4.35 M/mm3 (4.2-5.4); White Blood Count 5.9 K/mm3 (4.4-11.0)
[2024-10-31 14:43] LABS: ALB/GLOB Ratio 1.6 RATIO (0.9-2.4); AST(SGOT) 15 U/L (<=31); Alanine Aminotransfer ALT/SGPT 12 U/L (<=34); Albumin, Serum 4.4 g/dL (3.5-5.0); Alkaline Phosphatase 123 U/L (35-104); Anion Gap 9 (5-15); BUN 19 mg/dL (4-19); BUN/Creat Ratio 26.3 RATIO (10-20); Calcium,Total 9.4 mg/dL (7.6-11.0); Carbon Dioxide 23.8 mmol/L (21.0-32.0); Chloride 108 mmol/L (98-108); Cholesterol 139 mg/dL (<=200); Creatinine, Serum 0.73 mg/dL (0.70-1.20); EST Glomerular Filtration Rate 116 (>60); Globulin 2.7 g/dL (2.2-4.2); Glucose 88 mg/dL (70-99); High Density Lipoprotein 60 mg/dL; Low Density Lipoprotein Calc. 73 mg/dL; Potassium 4.6 mmol/L (3.3-5.1); Protein, Total 7.2 g/dL (5.9-8.4); Sodium Level 141 mmol/L (133-145); Total Bilirubin 0.45 mg/dL (0.00-1.30); Triglycerides 32 mg/dL; Very Low Density Lipoprotein 6 mg/dL (5-40); cholesterol:hdl ratio screen 2.34
== END | disposition home or self-care (01) ==
PROVIDERS: PCP Internal Medicine; Referring Provider Internal Medicine; Visit Provider Internal Medicine
DX: Z00.00 Encounter for general adult medical examination without abnormal findings (principal); Z13.6 Encounter for screening for cardiovascular disorders
CPT/HCPCS: 36415; 80053; 80061; 85025

== ENCOUNTER → 2025-02-08 | Outpatient (CLI) | payer OTHER, SELFPAY ==
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
--- OUTSIDE RECORDS SUMMARY | 2025-02-08 16:09 | XMS RPT_ITS | CCD ---
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 percentageon 2021 Basophils/100 WBC (Bld) 0.5 % 0-1 [facility] Work Phone: Eosinophils/100 WBC (Bld) 1.0 % 0-5 [facility] Work Phone: Neutrophils (Bld) [#/Vol] 5.6 10*3/uL 2.0-7.7 [facility] Work Phone: Neutrophils/100 WBC (Bld) 70.3 % 47-70 [facility] Work Phone: WBC (Bld) [#/Vol] 7.9 10*3/uL 4.4-11.0 [facility] Work Phone: Blood erythrocytes count (nu mber/volume)on 02-15-2022 RBC (Bld) [#/Vol] 3.57 10*6/uL 4.2-5.4 [facility] Work Phone: Blood hemoglobin measurement (mass/volume)on 02-15-2022 Hemoglobin (Bld) [Mass/Vol] 11.2 g/dL 12.0-15.0 [facility] Work Phone: [phone] Blood lymphocytes/100 leukoc yteson 02-15-2022 Lymphocytes/100 WBC (Bld) 19.3 % 19-41 [facility] Work Phone: Blood monocytes/100 leukocyt eson 02-15-2022 Monocytes/100 WBC (Bld) 7.6 % 0-10 [facility] Work Phone: [phone] Blood platelet mean volumeon 02-15-2022 Platelet mean volume (Bld) [Entitic vol] 12.1 fL 6.2-12.0 [facility] Work Phone: Determination of erythrocyte mean corpuscular volume (MCV)on 02-15-2022 MCV (RBC) [Entitic vol] 94.1 fL 81-99 [facility] Work Phone: Hematocrit Auto (Bld) [Volum e fraction]on 02-15-2022 Hematocrit (Bld) [Volume fraction] 33.6 % 37-47 [facility] Work Phone: Laboratory - Chemistry and C hemistry - challengeon 02-15-2022 Glucose Ql (U) Negative [facility] Work Phone: Laboratory - Hematology and Cell countson 02-15-2022 Erythrocyte distribution width (RBC) [Entitic vol] 46.4 fL 35.1-43.9 [facility] Work Phone: Erythrocyte distribution width (RBC) [Ratio] 13.4 % 11.6-14.6 [facility] Work Phone: [phone] Immature granulocytes/100 WBC (Bld) 1.300 % 0.0-0.9 [facility] Work Phone: Comment on above: IG% - Immature Granu locytes (promyelocytes, myelocytes and metamyelocytes) > 1% indicates that a LEFT SHIFT is Present. MCH (RBC) [Entitic mass] 31.4 pg 27.0-32.0 [facility] Work Phone: Nucleated RBC/100 WBC (Bld) [Ratio] 0 % 0-5 [facility] Work Phone: Laboratory - Urinalysison Protein Ql (U) Negative [facility] Work Phone: MCHC Auto (RBC) [Mass/Vol]on 02-15-2022 MCHC (RBC) [Mass/Vol] 33.3 g/dL 32-36 [facility] Work Phone: Platelets bldon 02-15-2022 Platelets (Bld) [#/Vol] 139 10*3/uL 150-450 [facility] Work Phone: Laboratory - Chemistry and C hemistry - challengeon 02-01-2022 Glucose Ql (U) Negative [facility] Work Phone: Laboratory - Urinalysison Protein Ql (U) Negative [facility] Work Phone: Laboratory - Chemistry and C hemistry - challengeon 01-18-2022 Glucose Ql (U) Negative [facility] Work Phone: Laboratory - Urinalysison Protein Ql (U) Negative [facility] Work Phone: Quantitative serum or plasma 3 hour gestational glucose tolerance panelon 01-07-2022 Glucose tolerance 3 hours gestational panel See comment [facility] Work Phone: Comment on above: FASTING 82 Col: 12/23 01/13 0950GLUCOSE TOLERANCE TEST FOR Reference Interval GESTATIONAL DIABETES Fasting <105 mg/dL 1 hour <190 mg/dl 2 hour <165 mg/dl 3 hour <145 mg/dl 1 HR GLU 129 Col: 01/07/22 1053 2 HR GLU 123 Col: 01/07/22 1152 3 HR GLU 109 Col: 01/07/22 1252 Laboratory - Chemistry and C hemistry - challengeon 01-05-2022 Glucose Ql (U) Negative [facility] Work Phone: Laboratory - Urinalysison Protein Ql (U) Negative [facility] Work Phone: [phone] No Panel Informationon 12-28 Vaginal Amniotic Fluid Detection Negative Negative [facility] Work Phone: [phone] Comment on above: Amniotic fluid not p resent indicates No Rupture of FetalMembranes at time of specimen collection. Absolute lymphocyte counton 12-25-2021 Lymphocytes Auto (Unsp spec) [#/Vol] 1.59 10*3/uL 0.83-4.51 [facility] Work Phone: Basophil percentageon 2021 Basophils/100 WBC (Bld) 0.4 % 0-1 [facility] Work Phone: Eosinophils/100 WBC (Bld) 0.9 % 0-5 [facility] Work Phone: Neutrophils (Bld) [#/Vol] 7.5 10*3/uL 2.0-7.7 [facility] Work Phone: Neutrophils/100 WBC (Bld) 76.5 % 47-70 [facility] Work Phone: WBC (Bld) [#/Vol] 9.9 10*3/uL 4.4-11.0 [facility] Work Phone: [phone] Blood erythrocytes count (nu mber/volume)on 12-25-2021 RBC (Bld) [#/Vol] 3.39 10*6/uL 4.2-5.4 [facility] Work Phone: Blood hemoglobin measurement (mass/volume)on 12-25-2021 Hemoglobin (Bld) [Mass/Vol] 10.5 g/dL 12.0-15.0 [facility] Work Phone: Blood lymphocytes/100 leukoc yteson 12-25-2021 Lymphocytes/100 WBC (Bld) 16.1 % 19-41 [facility] Work Phone: Blood monocytes/100 leukocyt eson 12-25-2021 Monocytes/100 WBC (Bld) 4.9 % 0-10 [facility] Work Phone: Blood platelet mean volumeon 12-25-2021 Platelet mean volume (Bld) [Entitic vol] 11.1 fL 6.2-12.0 [facility] Work Phone: Determination of erythrocyte mean corpuscular volume (MCV)on 12-25-2021 MCV (RBC) [Entitic vol] 92.6 fL 81-99 [facility] Work Phone: Gestational diabetes screen 1-hour screen with 50g oral glucose loadon 12-25-2021 Glucose 1 Hr post 50 g glucose PO [Mass/Vol] 145 mg/dL 70-140 [facility] Work Phone: Hematocrit Auto (Bld) [Volum e fraction]on 12-25-2021 Hematocrit (Bld) [Volume fraction] 31.4 % 37-47 [facility] Work Phone: Laboratory - Chemistry and C hemistry - challengeon 12-25-2021 Glucose Ql (U) Negative [facility] Work Phone: Laboratory - Hematology and Cell countson 12-25-2021 Erythrocyte distribution width (RBC) [Entitic vol] 43.8 fL 35.1-43.9 [facility] Work Phone: Erythrocyte distribution width (RBC) [Ratio] 12.9 % 11.6-14.6 [facility] Work Phone: Immature granulocytes/100 WBC (Bld) 1.200 % 0.0-0.9 [facility] Work Phone: Comment on above: IG% - Immature Granu locytes (promyelocytes, myelocytes and metamyelocytes) > 1% indicates that a LEFT SHIFT is Present. MCH (RBC) [Entitic mass] 31.0 pg 27.0-32.0 [facility] Work Phone: Nucleated RBC/100 WBC (Bld) [Ratio] 0 % 0-5 [facility] Work Phone: Laboratory - Urinalysison Protein Ql (U) Negative [facility] Work Phone: MCHC Auto (RBC) [Mass/Vol]on 12-25-2021 MCHC (RBC) [Mass/Vol] 33.4 g/dL 32-36 [facility] Work Phone: Platelets bldon 12-25-2021 Platelets (Bld) [#/Vol] 163 10*3/uL 150-450 [facility] Work Phone: Laboratory - Chemistry and C hemistry - challengeon 11-10-2021 Glucose Ql (U) Negative [facility] Work Phone: Laboratory - Urinalysison Protein Ql (U) Negative [facility] Work Phone: Laboratory - Chemistry and C hemistry - challengeon 10-07-2021 Glucose Ql (U) Negative [facility] Work Phone: Laboratory - Urinalysison Protein Ql (U) Negative [facility] Work Phone: Laboratory - Chemistry and C hemistry - challengeon 09-10-2021 Glucose Ql (U) Negative [facility] Work Phone: Laboratory - Urinalysison Protein Ql (U) Negative [facility] Work Phone: CNOVon 05-04-2018 CNOV Office Visit ([facility]) GINA OVIEDO ([id number]) 1995 [facility] Time Provider Hveqmretvk43/11/18 9:45 AM POLO RHODES ([employer]) [facility] During your visit today, we recorded the following information about you: Temperature Pulse Respiration Blood pressure 98.7 degrees 74/minute 16/minute 90/64 Weight Last Period 60.2 kg 09/24/18Polo Rhodes APRN.BAHRATH 05/04/2018 11:35 AM SignedSubjectiveHPIPatient presents with:Sore Throat: with headache AND fatigue x 3 daysAlso complaints nasal drainage, coughAlka seltzer otc with minimal relief.Review of SystemsConstitutional: Negative for chills, fever and malaise/fatigue.HENT: Positive for congestion (and drainage) and sore throat. Negative for earpain.Eyes: Negative for discharge and redness.Respiratory: Positive for cough. Negative for hemoptysis, sputum production,shortness of breath and wheezing.Gastrointestinal: Negative for abdominal pain, diarrhea, nausea and vomiting.Skin: Negative for rash.Neurological: Negative for headaches.No past medical history on file.No past surgical history on file.ALLERGIES Patient has no known allergies.MEDICATIONS No prescriptions on file.No family history on file.Social HistorySubstance Use Topics- Smoking status: Former Smoker- Smokeless tobacco: Never Used- Alcohol use Not on fileObjectivePhysical ExamConstitutional: She is well-developed, well-nourished, and in no distress.HENT:Head: Normocephalic.Right Ear: Tympanic membrane, external ear and ear canal normal.Left Ear: Tympanic membrane, external ear and ear canal normal.Nose: Rhinorrhea present. Right sinus exhibits no maxillary sinus tendernessand no frontal sinus tenderness. Left sinus exhibits no maxillary sinustenderness and no frontal sinus tenderness.Mouth/Throat: Posterior oropharyngeal erythema (PND) present.Eyes: Conjunctivae are normal.Neck: Normal range of motion. Neck supple.Cardiovascular: Normal rate, regular rhythm and normal heart sounds.Pulmonary/Chest: Effort normal and breath sounds normal. No respiratorydistress. She has no wheezes.Abdominal: Soft. She exhibits no distension. There is no tenderness.Lymphadenopathy : She has no cervical adenopathy.Skin: Skin is warm and dry. No rash noted.Nursing note and vitals reviewed.ASSESSMENT/PLAN:1 . Sore throat - ICD9: 462, ICD10: J02.9 (primary diagnosis)- suspect viral- Rapid Strep negative in the office today- Discussed supportive care treatment with fluids, rest and analgesia.- The patient may also use OTC decongestants prn, OTC cough and cold meds asneeded, warm salt water gargles, throat lozenges and/or OTC throat spray asneeded and nasal saline gtts and suction prn.- The patient should follow up in 3-5 days if symptoms persist or worsen- Call back if drooling, increased temperature, symptoms of dehydration and/orstill sick in one week- RAPID STREP TEST B/O- GROUP A STREPTOCOCCUS BY PCR2. Viral URI with cough - ICD9: 465.9, ICD10: J06.9, B97.89- Discussed viral etiology and rationale for treatment.- Rapid strep negative in office today- Symptomatic treatment with prn analgesia- Supportive care with fluids and rest- Follow up in 3-5 days if symptoms persist or sooner if worsening of symptomsPrescription instructions reviewed with patient as applicable. Patient advisedif symptoms do not improve or if symptoms worsen sooner, to contact theirprimary care physician. Potential red flag symptoms discussed with thepatient. Reviewed appropriate action plan to take if red flag symptoms occur.Patient agreeable to treatment plan.Polo Rhodes APRN.Saravanan Rhodes APRN.CNP 05/04/2018 10:26 AM SignedTreatment for Viral Upper Respiratory Tract InfectionsYour body will kill off the virus by itself. Additionally, you can prime yourbody's immune system. This may help you get better more quickly.1. Drink lots of fluids - at least one gallon of non-caffeinated liquids per day2. Make sure you are eating well3. Get plenty of rest - at least 8 hours of sleep per night for adults and morefor childrenWe do not have any medications that kill off these viruses. Antibiotics areused to treat bacterial infections; however, they are not active against viralinfections. There are some things that might help you feel better, though.1. Vaporizers, humidifiers, hot showers, and hot fluids help open respiratoryand sinus passages2. Sudafed is a safe and effective decongestant3. [place] Nasal [place] may offer relief of nasal and head congestion4. Blayne's Vapor Rub placed on a hot towel and draped over the head may relievecongestion5. Tylenol and Advil help control fevers and headaches6. Salt water gargles help relieve sore throats7. Chloraceptic spray or throat lozenges may also help relieve sore throatsymptoms8. Robitussin DM will help loosen up secretions and also provide relief from acoughOccasionally, viral infections turn into something more serious. You shouldsee your doctor or return to the Urgent Care if:1. You have fevers for longer than five days2. You have fevers above 102 degrees3. You are still sick after 10 days4. You have shortness of breath or wheezing5. After several days you are getting worse rather than betterReferring Provider: SELF [[id number]]Allergies As of Date: 05/04/2018(No Known Allergies)Date Reviewed: 05/04/2018Reviewed by: Magi Pressley Ma - Fully AssessedReason for Visit: Sore Throat [200] Cmt: with headache AND fatigue x 3 daysPrimary Visit Diagnosis:Sore throat [J02.9] Other Visit Diagnosis:Viral URI with cough [J06.9, B97.89]Order(s):RAPID STREP TEST B/O [4900590] Order #: [id number] GROUP A STREPTOCOCCUS BY PCR [SQGASPCR] Order #: [id number] Brompheniramine-Pseudoeph- DM (BROMFED DM) 2-30-10 mg/5 mL syrupTake 10 mL by mouth four times daily as needed for up to 7 days.Disp: 240 mLRfl: 0Prescriptions as of 05/04/2018 Sig: BROMPHENIRAMINE-PSEUDOEPHE DRI* Take 10 mL by mouth four time*Problem List As Of Date: 05/04/2018(None) Other instructions from your clinician: Treatment for [...] is a safe and effective decongestant 3. [place] [facility] [place] may offer relief of nasal and head [...] days you are getting worse rather than betterPrescriptions ordered this encounter Disp Refills Start End BROMPHENIRAMINE-PSEUDOEPHE DRINE-DM 2* 240 * 0 05/04/2018 05/11/2018 Route: ORAL Sig: Take 10 mL by mouth four times daily as needed for up to 7 days.Disposition: Return if symptoms worsen or fail to improve.Follow-up and Disposition History RecordedLetter Sami Rhodes APRN.[facility] Urgent [id number] [facility] [address]Xnvw: [phone]/11/2018Ash sang [id number] [facility] [id number] Whom it May Concern:This is to certify that Akosua Oviedo was seen at our office for medicalcare. Akosua may return to work on 05/05/2018.If you have any questions please feel free to call.Sincerely:Polo Rhodes APRN.CNPEncounter Number: [id number] Status:Closed by POLO RHODES on 05/04/18 Normal [facility] Group A Strep by PCRon 05-04 GAS Specimen Source Throat Swab Normal [facility] Comment on above: Performed By: #### G ASPCR ####[facility] [place], [place] [phone] Group A Strep PCR Negative Normal [facility] Comment on above: Result Comment: This test was developed and its performance characteristics determined by [facility]'s [facility] [place] ([facility]).It has not been cleared or approved by the FDA. [facility] is regulated under CLIA as qualified to perform high-complexity testing. This test is used for clinical purposes. It should not be regarded as investigational or for research. Performed By: #### G ASPCR ####[facility] [address] [place], [place] [phone] PROGRESSon 05-04-2018 Protein mass conc HNO ID: [id number] thor: Polo Carlson (Neida) Haroon: (none)Author Type: Nurse PractitionerType: Progress NotesFiled: 05/04/2018 11:35 AMNote Text:SubjectiveHPIPatient presents with:Sore Throat: with headache AND fatigue x 3 daysAlso complaints nasal drainage, coughAlka seltzer otc with minimal relief.Review of SystemsConstitutional: Negative for chills, fever and malaise/fatigue.HENT: Positive for congestion (and drainage) and sore throat. Negative forear pain.Eyes: Negative for discharge and redness.Respiratory: Positive for cough. Negative for hemoptysis, sputumproduction, shortness of breath and wheezing.Gastrointestinal: Negative for abdominal pain, diarrhea, nausea andvomiting.Skin: Negative for rash.Neurological: Negative for headaches.No past medical history on file.No past surgical history on file.ALLERGIES Patient has no known allergies.MEDICATIONS No prescriptions on file.No family history on file.Social HistorySubstance Use Topics- Smoking status: Former Smoker- Smokeless tobacco: Never Used- Alcohol use Not on fileObjectivePhysical ExamConstitutional: She is well-developed, well-nourished, and in no distress.HENT:Head: Normocephalic.Right Ear: Tympanic membrane, external ear and ear canal normal.Left Ear: Tympanic membrane, external ear and ear canal normal.Nose: Rhinorrhea present. Right sinus exhibits no maxillary sinustenderness and no frontal sinus tenderness. Left sinus exhibits nomaxillary sinus tenderness and no frontal sinus tenderness.Mouth/Throat: Posterior oropharyngeal erythema (PND) present.Eyes: Conjunctivae are normal.Neck: Normal range of motion. Neck supple.Cardiovascular: Normal rate, regular rhythm and normal heart sounds.Pulmonary/Chest: Effort normal and breath sounds normal. No respiratorydistress. She has no wheezes.Abdominal: Soft. She exhibits no distension. There is no tenderness.Lymphadenopathy : She has no cervical adenopathy.Skin: Skin is warm and dry. No rash noted.Nursing note and vitals reviewed.ASSESSMENT/PLAN:1 . Sore throat - ICD9: 462, ICD10: J02.9 (primary diagnosis)- suspect viral- Rapid Strep negative in the office today- Discussed supportive care treatment with fluids, rest and analgesia.- The patient may also use OTC decongestants prn, OTC cough and cold medsas needed, warm salt water gargles, throat lozenges and/or OTC throatspray as needed and nasal saline gtts and suction prn.- The patient should follow up in 3-5 days if symptoms persist or worsen- Call back if drooling, increased temperature, symptoms of dehydrationand/or still sick in one week- RAPID STREP TEST B/O- GROUP A STREPTOCOCCUS BY PCR2. Viral URI with cough - ICD9: 465.9, ICD10: J06.9, B97.89- Discussed viral etiology and rationale for treatment.- Rapid strep negative in office today- Symptomatic treatment with prn analgesia- Supportive care with fluids and rest- Follow up in 3-5 days if symptoms persist or sooner if worsening ofsymptomsPrescription instructions reviewed with patient as applicable. Patientadvised if symptoms do not improve or if symptoms worsen sooner, tocontact their primary care physician. Potential red flag symptomsdiscussed with the patient. Reviewed appropriate action plan to take ifred flag symptoms occur. Patient agreeable to treatment plan.Polo Rhodes APRN.ADDICTIONS COUNSELOR ASSISTANT Normal [facility] CNOVon 08-01-2017 CNOV Office Visit ([facility]) DEOGINA ELLIS ([id number]) 1995 FDate Time Provider Department08/01/17 5:30 PM OLEGARIO FRANCISCO) [facility] During your visit today, we recorded the following information about you: Temperature Pulse Respiration Blood pressure 97.8 degrees 72/minute 16/minute 110/72 Weight 61.2 kgBernadelesley Francisco PA-C 08/02/2017 8:20 AM Signed08/01/2017Patient presents with:Sinus Problem: sinus pressure and drainage, nausea and headaches x 10 days,sore throat x 2 daysSUBJECTIVE: This is a 21 year old that is here today for Complaint(s) of sinuspressure and pain x 10 days. + purulent drainge. + chills, no fever. Alsonow having a worsening sore throat x 2 days. Denies cough, SOB, wheezing. .No past medical history on file.ALLERGIES Review of patient's allergies indicates no known allergies.MEDICATIONSNo current outpatient prescriptions on file.No current facility-administered medications for this visit.SOCIAL HISTORYSocial History Marital status: Single Spouse name: Years of education: Number of children:Social History Main Topics Smoking status: Former Smoker Packs/day: 0.00 Years: 0.00 Smokeless status: Never UsedREVIEW BrieFixAll other reviewed and negative other than HPI.OBJECTIVE:BP 110/72 Pulse 72 Temp 36.6 ?C (97.8 ?F) (Tympanic) Resp 16 Wt 61.2 kg(135 lb)APPEARANCE Well appearing, alert, in no acute distress, well-hydrated, wellnourished.EYES PERRLA, conjunctiva and sclera normal.EARS External ears normal, canals clearNOSE/SINUS Nares normal. Septum midline. Mucosa normal. No drainage or sinustenderness.THROAT normal, no erythemaNECK Supple, no adenopathy; thyroid symmetric, normal size, no bruitsHEART RRR with normal S1 and S2, no murmurs, no gallops, no JVD appreciatedLUNG clear to auscultationASSESSMENT/PAMELA N:1. Sore throat - ICD9: 462, ICD10: J02.9- Rapid Strep negative in the office today- antibiotic as written- Discussed supportive care treatment with fluids, rest and analgesia.- The patient may also use OTC cough and cold meds as needed, warm salt watergargles, throat lozenges and/or OTC throat spray as needed and nasal salinegtts and suction prn.- Contagious dz precautions discussed- including considered contagious untilon antibiotics for 24 hours- The patient should follow up in 3-5 days if symptoms persist or worsen- Call back if drooling, increased temperature, symptoms of dehydration and/orstill sick in one week- GROUP A STREPTOCOCCUS BY PCR- RAPID STREP TEST B/O- AMOXICILLIN 875 MG-POTASSIUM CLAVULANATE 125 MG TABLET-start if notimproving in 3-5 days, sooner if worsening to cover for a sinusitis.The patient indicates understanding of these issues and agrees with the plan.PETRA SahuReferring Provider: OLEGARIO FRANCISCO (BRENDAN) [[id number]]Allergies As of Date: 08/01/2017(No Known Allergies)Date Reviewed: 08/01/2017Reviewed by: Jessa Fam Ma - Fully AssessedReason for Visit: Sinus Problem [99] Cmt: sinus pressure and drainage, nausea and headaches x 10 days, sore throat x 2 daysPrimary Visit Diagnosis:Sore throat [J02.9]Order(s):GROUP A STREPTOCOCCUS BY PCR [SQGASPCR] Order #: [id number] RAPID STREP TEST B/O [[id number]] Order #: [id number] amoxicillin-clavulanic acid (AUGMENTIN) 875-125 mg per tabletTake 1 tablet by mouth twice daily for 10 days.Disp: 20 tabletRfl: 0Prescriptions as of 08/01/2017 Sig: AMOXICILLIN 875 MG-POTASSIUM * Take 1 tablet by mouth twice *Problem List As Of Date: 08/01/2017(None)Prescripti ons ordered this encounter Disp Refills Start End AMOXICILLIN 875 MG-POTASSIUM CLAVULA* 20 t* 0 08/01/2017 08/01/2017 Class: Print RX Route: ORAL Sig: Take 1 tablet by mouth twice daily for 10 days. AMOXICILLIN 875 MG-POTASSIUM CLAVULA* 20 t* 0 08/01/2017 08/11/2017 Class: Print RX Route: ORAL Sig: Take 1 tablet by mouth twice daily for 10 days.Medications Discontinued During This Encounter amoxicillin-clavulanic acid (AUGMENT* 20 t* 0 08/01/2017 08/01/2017 Class: Print RX Route: ORAL Sig: Take 1 tablet by mouth twice daily for 10 days. Disc: Reason for discontinue is not on file. Status:Closed by OLEGARIO FRANCISCO PA-C on 08/02/17 Normal [facility] Group A Strep by PCRon 08-01 GAS Specimen Source Throat Swab Normal [facility] Comment on above: Performed By: #### G ASPCR ####[place] [id number] [place], [place] [phone] Group A Strep PCR Positive Critically abnormal [facility] Comment on above: Result Comment: This test was developed and its performance characteristics determined by [facility] Laboratory Medicine [place] ([facility]).It has not been cleared or approved by the FDA. -[facility] is regulated under CLIA as qualified to perform high-complexity testing. This test is used for clinical purposes. It should not be regarded as investigational or for research. Performed By: #### G ASPCR ####[facility] [place], [place] [phone] PROGRESSon 08-01-2017 Protein mass conc HNO ID: [id number] thor: Olegario Beckerervice: (none)Author Type: Physician AssistantType: Progress NotesFiled: 08/02/2017 8:20 AMNote Text:08/01/2017Patient presents with:Sinus Problem: sinus pressure and drainage, nausea and headaches x 10days, sore throat x 2 daysSUBJECTIVE: This is a 21 year old that is here today for Complaint(s) ofsinus pressure and pain x 10 days. + purulent drainge. + chills, nofever. Also now having a worsening sore throat x 2 days. Denies cough,SOB, wheezing. .No past medical history on file.ALLERGIES Review of patient's allergies indicates no known allergies.MEDICATIONSNo current outpatient prescriptions on file.No current facility-administered medications for this visit.SOCIAL HISTORYSocial History Marital status: Single Spouse name: Years of education: Number of children:Social History Main Topics Smoking status: Former Smoker Packs/day: 0.00 Years: 0.00 Smokeless status: Never UsedREVIEW BrieFixAll other reviewed and negative other than HPI.OBJECTIVE:BP 110/72 Pulse 72 Temp 36.6 ?C (97.8 ?F) (Tympanic) Resp 16 Wt61.2 kg (135 lb)APPEARANCE Well appearing, alert, in no acute distress, well-hydrated,well nourished.EYES PERRLA, conjunctiva and sclera normal.EARS External ears normal, canals clearNOSE/SINUS Nares normal. Septum midline. Mucosa normal. No drainage orsinus tenderness.THROAT normal, no erythemaNECK Supple, no adenopathy; thyroid symmetric, normal size, no bruitsHEART RRR with normal S1 and S2, no murmurs, no gallops, no JVDappreciatedLUNG clear to auscultationASSESSMENT/PAMELA N:1. Sore throat - ICD9: 462, ICD10: J02.9- Rapid Strep negative in the office today- antibiotic as written- Discussed supportive care treatment with fluids, rest and analgesia.- The patient may also use OTC cough and cold meds as needed, warm saltwater gargles, throat lozenges and/or OTC throat spray as needed and nasalsaline gtts and suction prn.- Contagious dz precautions discussed- including considered contagiousuntil on antibiotics for 24 hours- The patient should follow up in 3-5 days if symptoms persist or worsen- Call back if drooling, increased temperature, symptoms of dehydrationand/or still sick in one week- GROUP A STREPTOCOCCUS BY PCR- RAPID STREP TEST B/O- AMOXICILLIN 875 MG-POTASSIUM CLAVULANATE 125 MG TABLET-start if notimproving in 3-5 days, sooner if worsening to cover for a sinusitis.The patient indicates understanding of these issues and agrees with theplan.SPENCER Sahu-C1/03/2018 Normal [facility] No Panel Information Group B Streptococcus Culture Group B Beta Streptococcus is not isolated. [facility] Work Phone: Vital Signs Date Time Vital Sign Value Performing Clinician Raphael mallory 02-08-2025 12:05-0400 Body temperature 98 [degF] Dr. Perez Marroquin MD Work Phone: [facility] 02-08-2025 12:05-0400 Diastolic blood pressure 78 mm[Hg] Dr. Perez Marroquin MD Work Phone: [facility] 02-08-2025 12:05-0400 Heart rate 52 /min Dr. Perez Marroquin MD Work Phone: [facility] 02-08-2025 12:05-0400 Respiratory rate 14 /min Dr. Perez Marroquin MD Work Phone: [facility] 02-08-2025 12:05-0400 SaO2% (BldA) [Mass fraction] 98 % Dr. Perez Marroquin MD Work Phone: [facility] 02-08-2025 12:05-0400 Systolic blood pressure 120 mm[Hg] Dr. Perez Marroquin MD Work Phone: [facility] 10-22-2024 14:55-0400 Body height 167.[address] Perez Marroquin MD Work Phone: [facility] 10-22-2024 14:55-0400 Body mass index (BMI) [Ratio] 22.9 kg/m2 Dr. Perez Marroquin MD Work Phone: [facility] 10-22-2024 14:55-0400 Body temperature 96.7 [degF] Dr. Perez Marroquin MD Work Phone: [facility] 10-22-2024 14:55-0400 Body weight 64.[address] Perez Marroquin MD Work Phone: [facility] 10-22-2024 14:55-0400 Diastolic blood pressure 70 mm[Hg] Dr. Perez Marroquin MD Work Phone: [facility] 10-22-2024 14:55-0400 Heart rate 72 /min Dr. Perez Marroquin MD Work Phone: [facility] 10-22-2024 14:55-0400 Respiratory rate 12 /min Dr. Perez Marroquin MD Work Phone: [facility] 10-22-2024 14:55-0400 SaO2% (BldA) [Mass fraction] 98 % Dr. Perez Marroquin MD Work Phone: [facility] 10-22-2024 14:55-0400 Systolic blood pressure 128 mm[Hg] Dr. Perez Marroquin MD Work Phone: [facility] 07-20-2023 09:02-0500 Body height 165.1 cm [employer] Moe Hellinger [employer] Work Phone: [facility] 07-20-2023 09:00-0500 Body mass index (BMI) [Ratio] 22.9 kg/m2 [employer] Moe Hellinger [employer] Work Phone: [facility] 07-20-2023 09:00-0500 Body weight 64.46 kg [employer] Moe Hellinger [employer] Work Phone: [facility] 07-20-2023 09:00-0500 Diastolic blood pressure 75 mm[Hg] [employer] Moe Hellinger [employer] Work Phone: [facility] 07-20-2023 09:00-0500 Heart rate 76 /min [employer] Moe Hellinger [employer] Work Phone: [facility] 07-20-2023 09:00-0500 Systolic blood pressure 110 mm[Hg] [employer] Moe Hellinger [employer] Work Phone: [facility] 07-06-2023 14:06-0500 Diastolic blood pressure 62 mm[Hg] [employer] Moe Hellinger [employer] Work Phone: [facility] 07-06-2023 14:06-0500 Heart rate 77 /min [employer] Moe Hellinger [employer] Work Phone: [facility] 07-06-2023 14:06-0500 Systolic blood pressure 116 mm[Hg] [employer] Moe Hellinger [employer] Work Phone: [facility] 07-06-2023 12:50-0500 Body height 165.1 cm [employer] Moe Hellinger [employer] Work Phone: [facility] 07-06-2023 12:50-0500 Body mass index (BMI) [Ratio] 23.5 kg/m2 [employer] Moe Hellinger [employer] Work Phone: [facility] 07-06-2023 12:50-0500 Body temperature 97.6 [degF] [employer] Moe Hellinger [employer] Work Phone: [facility] 07-06-2023 12:50-0500 Body weight 64.06 kg [employer] Moe Hellinger [employer] Work Phone: [facility] 07-06-2023 12:50-0500 Respiratory rate 16 /min [employer] Moe Hellinger [employer] Work Phone: [facility] 07-06-2023 12:50-0500 SaO2% (BldA) [Mass fraction] 99 % [employer] Moe Hellinger [employer] Work Phone: [facility] 05-09-2023 09:00-0400 Body mass index (BMI) [Ratio] 23.8 kg/m2 [employer] Moe Hellinger [employer] Work Phone: [facility] 05-09-2023 09:00-0400 Body weight 64.92 kg [employer] Moe Hellinger [employer] Work Phone: [facility] 05-09-2023 09:00-0400 Diastolic blood pressure 68 mm[Hg] [employer] Moe Hellinger [employer] Work Phone: [facility] 05-09-2023 09:00-0400 Systolic blood pressure 122 mm[Hg] [employer] Moe Hellinger [employer] Work Phone: [facility] 04-02-2022 11:46-0400 Body weight 4.34 kg [employer] Moe Hellinger [employer] Work Phone: [facility] Work Phone: 03-16-2022 10:06-0400 Body height 165.1 cm [employer] Moe Hellinger [employer] Work Phone: [facility] Work Phone: 03-14-2022 06:28-0400 Body temperature 97.6 [degF] [employer] Moe Hellinger [employer] Work Phone: [facility] Work Phone: 03-14-2022 06:28-0400 Diastolic blood pressure 78 mm[Hg] [employer] Moe Hellinger [employer] Work Phone: [facility] Work Phone: 03-14-2022 06:28-0400 Heart rate 74 /min [employer] Moe Hellinger [employer] Work Phone: [facility] Work Phone: 03-14-2022 06:28-0400 Respiratory rate 16 /min [employer] Moe Hellinger [employer] Work Phone: [facility] Work Phone: 03-14-2022 06:28-0400 SaO2% (BldA) [Mass fraction] 98 % [employer] Moe Hellinger [employer] Work Phone: [facility] Work Phone: 03-14-2022 06:28-0400 Systolic blood pressure 128 mm[Hg] [employer] Moe Hellinger [employer] Work Phone: [facility] Work Phone: 03-12-2022 17:02-0400 Body height 165.1 cm [employer] Moe Hellinger [employer] Work Phone: [facility] Work Phone: 03-12-2022 17:02-0400 Body mass index (BMI) [Ratio] 32.1 kg/m2 [employer] Moe Hellinger [employer] Work Phone: [facility] Work Phone: 03-12-2022 17:02-0400 Body weight 87.4 kg [employer] Moe Hellinger [employer] Work Phone: [facility] Work Phone: 03-08-2022 08:25-0400 Body mass index (BMI) [Ratio] 31.8 kg/m2 [employer] Moe Hellinger [employer] Work Phone: [facility] Work Phone: 03-08-2022 08:25-0400 Body weight 87.99 kg [employer] Moe Hellinger [employer] Work Phone: [facility] Work Phone: 03-08-2022 08:25-0400 Diastolic blood pressure 86 mm[Hg] [employer] Moe Hellinger [employer] Work Phone: [facility] Work Phone: 03-08-2022 08:25-0400 Systolic blood pressure 134 mm[Hg] [employer] Moe Hellinger [employer] Work Phone: [facility] Work Phone: 03-02-2022 09:07-0400 Diastolic blood pressure 76 mm[Hg] [employer] Moe Hellinger [employer] Work Phone: [facility] Work Phone: 03-02-2022 09:07-0400 Systolic blood pressure 130 mm[Hg] [employer] Moe Hellinger [employer] Work Phone: [facility] Work Phone: 03-02-2022 09:07-0400 Body mass index (BMI) [Ratio] 31.3 kg/m2 [employer] Moe Hellinger [employer] Work Phone: [facility] Work Phone: 03-02-2022 09:07-0400 Body weight 86.63 kg [employer] Moe Hellinger [employer] Work Phone: [facility] Work Phone: 02-24-2022 09:13-0400 Body height 166.37 cm [employer] Moe Hellinger [employer] Work Phone: [facility] Work Phone: 02-24-2022 09:13-0400 Body mass index (BMI) [Ratio] 31.1 kg/m2 [employer] Moe Hellinger [employer] Work Phone: [facility] Work Phone: 02-24-2022 09:13-0400 Body weight 86.18 kg [employer] Moe Hellinger [employer] Work Phone: [facility] Work Phone: 02-24-2022 09:13-0400 Diastolic blood pressure 73 mm[Hg] [employer] Moe Hellinger [employer] Work Phone: [facility] Work Phone: 02-24-2022 09:13-0400 Systolic blood pressure 131 mm[Hg] [employer] Moe Hellinger [employer] Work Phone: [facility] Work Phone: 02-15-2022 08:20-0400 Body height 166.37 cm [employer] Moe Hellinger [employer] Work Phone: [facility] Work Phone: 02-15-2022 08:20-0400 Body mass index (BMI) [Ratio] 30.6 kg/m2 [employer] Moe Hellinger [employer] Work Phone: [facility] Work Phone: 02-15-2022 08:20-0400 Body weight 84.82 kg [employer] Moe Hellinger [employer] Work Phone: [facility] Work Phone: 02-15-2022 08:20-0400 Diastolic blood pressure 72 mm[Hg] [employer] Moe Hellinger [employer] Work Phone: [facility] Work Phone: 02-15-2022 08:20-0400 Systolic blood pressure 110 mm[Hg] [employer] Moe Hellinger [employer] Work Phone: [facility] Work Phone: 02-01-2022 15:20-0400 Body mass index (BMI) [Ratio] 30.4 kg/m2 [employer] Moe Hellinger [employer] Work Phone: [facility] Work Phone: 02-01-2022 15:20-0400 Body weight 84.14 kg [employer] Moe Hellinger [employer] Work Phone: [facility] Work Phone: 02-01-2022 15:20-0400 Diastolic blood pressure 73 mm[Hg] [employer] Moe Hellinger [employer] Work Phone: [facility] Work Phone: 02-01-2022 15:20-0400 Systolic blood pressure 133 mm[Hg] [employer] Moe Hellinger [employer] Work Phone: [facility] Work Phone: 01-18-2022 08:53-0400 Body weight 82.55 kg [employer] Moe Hellinger [employer] Work Phone: [facility] Work Phone: 01-18-2022 08:23-0400 Diastolic blood pressure 62 mm[Hg] [employer] Moe Hellinger [employer] Work Phone: [facility] Work Phone: 01-18-2022 08:23-0400 Systolic blood pressure 100 mm[Hg] [employer] Moe Hellinger [employer] Work Phone: [facility] Work Phone: 01-05-2022 08:42-0400 Body mass index (BMI) [Ratio] 29 kg/m2 [employer] Moe Hellinger [employer] Work Phone: [facility] Work Phone: 01-05-2022 08:42-0400 Body weight 80.39 kg [employer] Moe Hellinger [employer] Work Phone: [facility] Work Phone: 01-05-2022 08:42-0400 Diastolic blood pressure 68 mm[Hg] [employer] Moe Hellinger [employer] Work Phone: [facility] Work Phone: 01-05-2022 08:42-0400 Systolic blood pressure 126 mm[Hg] [employer] Moe Hellinger [employer] Work Phone: [facility] Work Phone: 12-28-2021 09:02-0400 Heart rate 89 /min [employer] Moe Hellinger [employer] Work Phone: [facility] Work Phone: 12-28-2021 09:02-0400 SaO2% (BldA) [Mass fraction] 99 % [employer] Moe Hellinger [employer] Work Phone: [facility] Work Phone: 12-28-2021 08:59-0400 Diastolic blood pressure 71 mm[Hg] [employer] Moe Hellinger [employer] Work Phone: [facility] Work Phone: 12-28-2021 08:59-0400 Systolic blood pressure 130 mm[Hg] [employer] Moe Hellinger [employer] Work Phone: [facility] Work Phone: 12-28-2021 08:57-0400 Body height 166.37 cm [employer] Moe Hellinger [employer] Work Phone: [facility] Work Phone: 12-28-2021 08:57-0400 Body mass index (BMI) [Ratio] 28.7 kg/m2 [employer] Moe Hellinger [employer] Work Phone: [facility] Work Phone: 12-28-2021 08:57-0400 Body weight 79.5 kg [employer] Moe Quinnlinger [employer] Work Phone: [facility] Work Phone: 12-25-2021 08:36-0400 Body mass index (BMI) [Ratio] 30.8 kg/m2 [employer] Moe Quinnlinger [employer] Work Phone: [facility] Work Phone: 12-25-2021 08:36-0400 Body weight 78.98 kg [employer] Moe Quinnlinger [employer] Work Phone: [facility] Work Phone: 12-25-2021 08:36-0400 Diastolic blood pressure 76 mm[Hg] [employer] Moe Hellinger [employer] Work Phone: [facility] Work Phone: 12-25-2021 08:36-0400 Systolic blood pressure 135 mm[Hg] [employer] Moe Hellinger [employer] Work Phone: [facility] Work Phone: 12-25-2021 08:36-0400 Body mass index (BMI) [Ratio] 30.8 kg/m2 [employer] Moe Hellinger [employer] Work Phone: [facility] Work Phone: 12-25-2021 08:36-0400 Body weight 78.98 kg [employer] Moe Quinnlinger [employer] Work Phone: [facility] Work Phone: 12-25-2021 08:36-0400 Diastolic blood pressure 76 mm[Hg] [employer] Moe Quinnlinger [employer] Work Phone: [facility] Work Phone: 12-25-2021 08:36-0400 Systolic blood pressure 135 mm[Hg] [employer] Moe Hellinger [employer] Work Phone: [facility] Work Phone: 12-11-2021 09:54-0400 Body mass index (BMI) [Ratio] 30.1 kg/m2 [employer] Moe Hellinger [employer] Work Phone: [facility] Work Phone: 12-11-2021 09:54-0400 Body weight 77.11 kg [employer] Moe Quinnlinger [employer] Work Phone: [facility] Work Phone: 12-11-2021 09:54-0400 Diastolic blood pressure 72 mm[Hg] [employer] Moe Quinnlinger [employer] Work Phone: [facility] Work Phone: 12-11-2021 09:54-0400 Heart rate 102 /min [employer] Moe Hellinger [employer] Work Phone: [facility] Work Phone: 12-11-2021 09:54-0400 Systolic blood pressure 123 mm[Hg] [employer] Moe Hellinger [employer] Work Phone: [facility] Work Phone: 12-11-2021 09:54-0400 Body mass index (BMI) [Ratio] 30.1 kg/m2 [employer] Moe Hellinger [employer] Work Phone: [facility] Work Phone: 12-11-2021 09:54-0400 Body weight 77.11 kg [employer] Moe Hellinger [employer] Work Phone: [facility] Work Phone: 12-11-2021 09:54-0400 Diastolic blood pressure 72 mm[Hg] [employer] Moe Hellinger [employer] Work Phone: [facility] Work Phone: 12-11-2021 09:54-0400 Heart rate 102 /min [employer] Moe Hellinger [employer] Work Phone: [facility] Work Phone: 12-11-2021 09:54-0400 Systolic blood pressure 123 mm[Hg] [employer] Moe Hellinger [employer] Work Phone: [facility] Work Phone: 11-10-2021 09:34-0400 Body mass index (BMI) [Ratio] 28.9 kg/m2 [employer] Moe Hellinger [employer] Work Phone: [facility] Work Phone: 11-10-2021 09:34-0400 Body weight 74.1 kg [employer] Moe Hellinger [employer] Work Phone: [facility] Work Phone: 11-10-2021 09:34-0400 Diastolic blood pressure 64 mm[Hg] [employer] Moe Hellinger [employer] Work Phone: [facility] Work Phone: 11-10-2021 09:34-0400 Systolic blood pressure 136 mm[Hg] [employer] Moe Hellinger [employer] Work Phone: [facility] Work Phone: 11-10-2021 09:34-0400 Body mass index (BMI) [Ratio] 28.9 kg/m2 [employer] Moe Hellinger [employer] Work Phone: [facility] Work Phone: 11-10-2021 09:34-0400 Body weight 74.1 kg [employer] Moe Hellinger [employer] Work Phone: [facility] Work Phone: 11-10-2021 09:34-0400 Diastolic blood pressure 64 mm[Hg] [employer] Moe Hellinger [employer] Work Phone: [facility] Work Phone: 11-10-2021 09:34-0400 Systolic blood pressure 136 mm[Hg] [employer] Moe Hellinger [employer] Work Phone: [facility] Work Phone: 10-07-2021 08:35-0400 Body mass index (BMI) [Ratio] 27.4 kg/m2 [employer] Moe Hellinger [employer] Work Phone: [facility] Work Phone: 10-07-2021 08:35-0400 Body weight 70.3 kg [employer] Moe Hellinger [employer] Work Phone: [facility] Work Phone: 10-07-2021 08:35-0400 Diastolic blood pressure 64 mm[Hg] [employer] Moe Hellinger [employer] Work Phone: [facility] Work Phone: 10-07-2021 08:35-0400 Systolic blood pressure 126 mm[Hg] [employer] Moe Hellinger [employer] Work Phone: [facility] Work Phone: 09-10-2021 07:43-0500 Body mass index (BMI) [Ratio] 27.1 kg/m2 [employer] Moe Hellinger [employer] Work Phone: [facility] Work Phone: 09-10-2021 07:43-0500 Body weight 69.62 kg [employer] Moe Hellinger [employer] Work Phone: [facility] Work Phone: 09-10-2021 07:43-0500 Diastolic blood pressure 72 mm[Hg] [employer] Moe Balldianna [employer] Work Phone: [facility] Work Phone: 09-10-2021 07:43-0500 Systolic blood pressure 120 mm[Hg] [employer] Moe Balldianna [employer] Work Phone: [facility] Work Phone: Encounters Encounter Date Encounter Type Care Provider Facility Start: 02-08-2025 End: 02-08-[address] Perez Marroquin MD Work Phone: [facility] Start: 02-08-2025 End: 02-08-2025 Patient encounter procedure Yohan Perdomo [facility] Work Phone: Start: 11-02-2024 Encounter for genera l adult medical examination without abnormal findings Perez Marroquin [facility] Start: 10-31-2024 End: 10-31-[address] Perez Marroquin MD Work Phone: [facility] Work Phone: Start: 10-31-2024 End: 10-31-[address] Perez Marroquin MD -Laboratory Work Phone: Start: 10-31-2024 End: 10-31-2024 ambulatory Perez Marroquin Facility:[facility] Start: 10-22-2024 End: 10-22-[address] Perez Marroquin MD -[facility] Work Phone: Start: 10-22-2024 End: 10-22-2024 ambulatory Perez Marroquin Facility:[facility] Start: 04-09-2024 ambulatory Perez Bourgeoislay Facility :[facility] Start: 04-03-2024 End: 04-03-2024 ambulatory Perez Marroquin Facility:[facility] Start: 04-03-2024 End: 04-03-2024 ambulatory Perez Cara Facility:[facility] Start: 04-03-2024 End: 04-03-2024 ambulatory Shea Quintana Facility:[facility] Start: 03-17-2024 End: 03-17-2024 ambulatory Auryrandolph Freedloi [employer] Facility:[facility] Start: 02-23-2024 ambulatory Perez Cara Facility :[facility] Start: 02-22-2024 ambulatory Mary Jo Toribio Fa cility:[facility] Start: 02-22-2024 End: 02-23-2024 Evaluation and management of inpatient Perez Cara Facility:[facility] Start: 02-16-2024 End: 02-16-2024 ambulatory Mary Jo An [place] Facility:[facility] Start: 02-06-2024 End: 02-06-2024 ambulatory Perez Cara Facility:[facility] Start: 02-01-2024 End: 02-01-2024 ambulatory Perez Cara Facility:[facility] Start: 02-01-2024 End: 02-01-2024 ambulatory Perez [place] Facility:[facility] Start: 01-19-2024 End: 01-19-2024 ambulatory Mary Jo An [place] Facility:[facility] Start: 01-06-2024 End: 01-06-2024 ambulatory Perez [place] Facility:[facility] Start: 12-21-2023 End: 12-21-2023 ambulatory Perez [place] Facility:[facility] Start: 12-08-2023 End: 12-08-2023 ambulatory Perez [place] Facility:[facility] Start: 12-06-2023 End: 12-06-2023 ambulatory Perez Cara Facility:[facility] Start: 11-09-2023 End: 11-09-2023 ambulatory Perez Cara Facility:[facility] Start: 10-06-2023 End: 10-06-2023 ambulatory MILTON PALAFOX [facility] Start: 07-20-2023 End: 07-20-2023 ambulatory [employer] Moe Ambriz NP Work Phone: [facility] Work Phone: Start: 07-20-2023 End: 07-20-2023 Patient encounter procedure [employer] Moe Pittmaner [employer] Work Phone: [facility] Work Phone: Start: 07-06-2023 End: 07-06-2023 ambulatory [employer] Moe Pittmaner [employer] Work Phone: [facility] Work Phone: Start: 07-06-2023 End: 07-06-2023 Patient encounter procedure [employer] Moemendel Pittmaner [employer] Work Phone: [facility] Start: 07-06-2023 End: 07-06-2023 Patient encounter procedure [employer] Moe Pittmaner [employer] Work Phone: [facility] Work Phone: Start: 05-09-2023 End: 05-09-2023 Patient encounter procedure [employer] Moe Pittmaner [employer] Work Phone: [facility] Work Phone: Start: 04-02-2022 End: 04-02-2022 ambulatory [employer] Moe Pittmaner [employer] Work Phone: [facility] Work Phone: Start: 04-02-2022 End: 04-02-2022 Patient encounter procedure [employer] Moe Pittmaner [employer] Work Phone: [facility] Start: 03-15-2022 End: 03-15-2022 Patient encounter procedure [employer]C Moemendel Pittmaner [employer] Work Phone: [facility] Start: 03-14-2022 Non-patient / Non-visit [employer] Moe Quinnlinger [employer] Work Phone: [facility] Start: 03-13-2022 Non-patient / Non-visit [employer] Moe Quinnlinger [employer] Work Phone: [facility] Start: 03-12-2022 Non-patient / Non-visit [employer] Moe Pittmaner [employer] Work Phone: [facility] Start: 03-12-2022 End: 03-14-2022 Evaluation and management of inpatient [employer] Moe Pittmaner [employer] Work Phone: [facility] Start: 03-08-2022 End: 03-08-2022 Patient encounter procedure [employer] Moe Pittmaner [employer] Work Phone: [facility] Start: 03-02-2022 End: 03-02-2022 Patient encounter procedure [employer] Moe Pittmaner [employer] Work Phone: [facility] Start: 02-24-2022 End: 02-24-2022 Patient encounter procedure [employer] Moe Pittmaner [employer] Work Phone: [facility] Spec[facility] Start: 02-24-2022 End: 02-24-2022 Patient encounter procedure [employer] Moe Pittmaner [employer] Work Phone: [facility] Start: 02-15-2022 End: 02-15-2022 Patient encounter procedure [employer] Moe Pittmaner [employer] Work Phone: [facility] Start: 02-01-2022 End: 02-01-2022 Patient encounter procedure [employer] Moe Quinnlinger [employer] Work Phone: [facility] Start: 01-18-2022 End: 01-18-2022 Patient encounter procedure [employer] Moe Pittmaner [employer] Work Phone: [facility] Start: 01-07-2022 End: 01-07-2022 Patient encounter procedure [employer] Moe Quinnlinger [employer] Work Phone: [facility] Start: 01-05-2022 End: 01-05-2022 Patient encounter procedure [employer] Moe Pittmaner [employer] Work Phone: [facility] Start: 12-28-2021 Non-patient / Non-visit [employer] Moe Pittmaner [employer] Work Phone: [facility] Start: 12-28-2021 End: 12-28-2021 Patient encounter procedure [employer] Moe Pittmaner [employer] Work Phone: [facility] Start: 12-25-2021 End: 12-25-2021 Patient encounter procedure [employer] Moe Pittmaner [employer] Work Phone: [facility] Start: 12-11-2021 End: 12-11-2021 Patient encounter procedure [employer] Moe Pittmaner [employer] Work Phone: [facility] Start: 11-10-2021 End: 11-10-2021 Patient encounter procedure [employer] Moe Pittmaner [employer] Work Phone: [facility] Start: 10-07-2021 End: 10-07-2021 Patient encounter procedure [employer] Moe Pittmaner [employer] Work Phone: [facility] Start: 09-10-2021 End: 09-10-2021 Patient encounter procedure [employer] Moe Hellinger [employer] Work Phone: [facility] Start: 05-04-2018 End: 05-08-2018 Patient encounter OLEGARIO FRANCISCO [facility] Start: 08-01-2017 End: 08-01-2017 Patient encounter OLEGARIO DEE) AC [facility] Procedures Date Procedure Procedure Detail Performing Clinician Start: 02-08-2025 X-ray of ankle, thre e or more views Dr. Perez Marroquin MD Work Phone: Start: 07-20-2023 Urine culture [employer] Leandra Ambriz [employer] Work Phone: [facility] Streptococcu s Culture [employer] Moe Ambriz [employer] Work Phone: Viral antigen assay [employer] Shin [employer] Work Phone: Plan of Treatment Date Care Activity Detail Author Start: 03-14-2022 Patient discharge [facility] Work Phone: Start: 03-13-2022 Administration of medication [facility] Work Phone: Start: 03-13-2022 Application of ice c ollar, cap or bag [facility] Work Phone: Start: 03-13-2022 Catheterization of vein [facility] Work Phone: Start: 03-13-2022 Introduction of urin tera catheter [facility] Work Phone: Start: 03-13-2022 Measuring intake and output [facility] Work Phone: Start: 03-13-2022 Notification of physician [facility] Work Phone: Start: 03-13-2022 Procedure discontinued [facility] Work Phone: Start: 03-13-2022 Provision of activit y privileges [facility] Work Phone: Start: 03-13-2022 Vital signs measurements [facility] Work Phone: Start: 03-13-2022 [facility] Work Phone: Start: 03-13-2022 Consultation [facility] Work Phone: Start: 03-12-2022 Admission procedure [facility] Work Phone: Start: 12-28-2021 Nonstress test [facility] Work Phone: Start: 12-28-2021 Obstetric monitoring [facility] Work Phone: Start: 12-28-2021 Vital signs measurements [facility] Work Phone: Start: 12-28-2021 [facility] Work Phone: Start: 12-28-2021 Patient discharge [facility] Work Phone: Patient Education [employer] [facility] Work Phone: Patient referral [facility] Work Phone: Immunizations Immunization Date Immunization Notes Care Provider Fa chrissie 12-25-2021 tetanus toxoid, redu danny diphtheria toxoid, and acellular pertussis vaccine, adsorbed [employer] Moe Hellinger [employer] Work Phone: [facility] 12-25-2021 diphtheria, tetanus toxoids and acellular pertussis vaccine, unspecified formulation [employer] Moe Hellinger [employer] Work Phone: [facility] Work Phone: 12-04-2020 Covid (Moderna) [employer] Moe Hellinger [employer] Work Phone: [facility] 11-06-2020 Covid (Moderna) [employer] Moe Hellinger [employer] Work Phone: [facility] 11-23-2012 human papilloma viru s vaccine, quadrivalent [employer] Moe Hellinger [employer] Work Phone: [facility] 08-29-2012 human papilloma viru s vaccine, quadrivalent [employer] Moe Hellinger [employer] Work Phone: [facility] 08-29-2012 influenza, injectabl e, quadrivalent, preservative free [employer] Moe Hellinger [employer] Work Phone: [facility] 08-29-2012 meningococcal polysaccharide (groups A, C, Y and W-135) diphtheria toxoid conjugate vaccine (MCV4P) [employer] Moe Hellinger [employer] Work Phone: [facility] 04-14-2010 hepatitis B vaccine, pediatric or pediatric/adolescent dosage [employer] Moe Pittmaner [employer] Work Phone: [facility] 04-14-2010 meningococcal polysaccharide (groups A, C, Y and W-135) diphtheria toxoid conjugate vaccine (MCV4P) [employer] Moe Pittmaner [employer] Work Phone: [facility] 04-14-2010 tetanus toxoid, redu danny diphtheria toxoid, and acellular pertussis vaccine, adsorbed [employer] Moe Ambriz [employer] Work Phone: [facility] 02-05-2003 diphtheria, tetanus toxoids and acellular pertussis vaccine [employer] Moe Pittmaner [employer] Work Phone: [facility] 02-05-2003 measles, mumps and rubella virus vaccine [employer] Moe Pittmaner [employer] Work Phone: [facility] 03-19-2002 poliovirus vaccine, inactivated [employer] Moe Pittmaner [employer] Work Phone: [facility] 02-01-2000 pneumococcal conjuga te vaccine, 7 valent [employer] Moe Pittmaner [employer] Work Phone: [facility] 11-05-1999 diphtheria, tetanus toxoids and acellular pertussis vaccine [employer] Moe Pittmaner [employer] Work Phone: [facility] 11-05-1999 haemophilus influenz ae type b vaccine, PRP-T conjugate [employer] Moe Pittmaner [employer] Work Phone: [facility] 04-07-1999 poliovirus vaccine, inactivated [employer] Moe Pittmaner [employer] Work Phone: [facility] 12-30-1998 measles, mumps and rubella virus vaccine [employer] Moe Pittmaner [employer] Work Phone: [facility] 09-16-1998 hepatitis B vaccine, pediatric or pediatric/adolescent dosage [employer] Moe Pittmaner [employer] Work Phone: [facility] 07-08-1998 diphtheria, tetanus toxoids and acellular pertussis vaccine [employer] Moe Pittmaner [employer] Work Phone: [facility] 05-06-1998 diphtheria, tetanus toxoids and acellular pertussis vaccine [employer] Moe Pittmaner [employer] Work Phone: [facility] 05-06-1998 poliovirus vaccine, inactivated [employer] Moe Balllinger [employer] Work Phone: [facility] 03-03-1998 diphtheria, tetanus toxoids and acellular pertussis vaccine [employer]-C Moe Balllinger [employer] Work Phone: [facility] 03-03-1998 poliovirus vaccine, inactivated [employer] Moe Pittmaner [employer] Work Phone: [facility] 01-23-1998 hepatitis B vaccine, pediatric or pediatric/adolescent dosage [employer] Moe Pittmaner [employer] Work Phone: [facility] Payers Date Payer Category Payer Unknown [id number] 2023 Self-pay [id number] 2023 Private Health Insurance [id number] 1997 Unknown [id number] [id number]. [id number] Unknown [id number] Unknown [id number] 2.16.8 [id number] Unknown [id number] 2.16.8 [id number] Unknown [id number] 2.16.8 [id number] Unknown [id number] 2.16.8 [id number] Unknown [id number] 2.16.8 [id number] Unknown [id number] 2.16.8 [id number] Unknown [id number] 2.16.8 [id number] Unknown [id number] 2.16.8 [id number] Unknown [id number] 2.16.8 [id number] Unknown [id number] 2.16.8 [id number] Unknown [id number] 2.16.8 [id number] Unknown [id number] 2.16.8 [id number] Unknown [id number] 2.16.8 [id number] Unknown [id number] 2.16.8 [id number] Unknown [id number] 2.16.8 [id number] Unknown [id number] 2.16.8 [id number] Unknown [id number] 2.16.8 [id number] Unknown [id number] 2.16.8 [id number] Unknown [id number] 2.16.8 [id number] Unknown [id number] 2.16.8 [id number] Unknown [id number] 2.16.8 [id number] Social History Date Type Detail Facility Start: 12-25-2021 End: 07-06-2023 Tobacco smoking status NHIS Unknown if ever smoked [facility] Start: 1995 Sex Assigned At Female [facility] Start: 10-22-2024 Tobacco smoking stat us NHIS Never smoked tobacco (finding) [facility] Start: 11-02-2024 Sex Female (finding) [facility] Goals Date Patient Goal Desired Activity /State Evaluation note 10-22-2024 Note Date & Type Note Facility 10-22-2024 Evaluation note Diagnosis Onset Date Resolution Immunization declined noneactive Mar ch 2024 2:53pm Screening for cardiovascular condition noneactive September 242024 2:53pm Annual physical exam noneactive [facility] 2024 2:53pm [facility] Work Phone: Evaluation note Note Date & Type Note Facility Evaluation note Diagnosis Onset Date Depression acute acute Supervision of normal acute Subchorionic hematoma resolv ed Depression acute acute Supervision of normal acute Subchorionic hematoma resolv ed Depression acute acute Supervision of normal acute Depression acute acute Supervision of normal acute Depression acute acute Supervision of normal acute [facility] Work Phone: Evaluation note Note Date & Type Note Facility Evaluation note Diagnosis Onset Date Depression acute acute Supervision of normal acute Depression acute acute Supervision of normal acute Depression acute acute Supervision of normal acute Abnormal glucose affecting acute Depression acute Mild anemia acute acute Supervision of normal acute False labor before 37 comple [place] weeks of gestation resolved Abnormal glucose affecting acute Depression acute Mild anemia acute acute Supervision of normal acute Abnormal glucose affecting acute Depression acute Mild anemia acute acute Supervision of normal acute Abnormal glucose affecting acute Depression acute Mild anemia acute acute Supervision of normal acute Abnormal glucose affecting acute Depression acute Mild anemia acute acute Supervision of normal acute [facility] Work Phone: Evaluation note Note Date & Type Note Facility Evaluation note Diagnosis Onset Date Depression acute acute Supervision of normal acute Depression acute acute Supervision of normal acute Depression acute acute Supervision of normal acute Abnormal glucose affecting acute Depression acute Mild anemia acute acute Supervision of normal acute False labor before 37 comple [place] weeks of gestation resolved Abnormal glucose affecting acute Depression acute Mild anemia acute acute Supervision of normal acute Abnormal glucose affecting acute Depression acute Mild anemia acute acute Supervision of normal acute Abnormal glucose affecting acute Depression acute Mild anemia acute acute Supervision of normal acute Abnormal glucose affecting acute Depression acute Mild anemia acute acute Supervision of normal acute Abnormal glucose affecting acute Depression acute Mild anemia acute acute Supervision of normal acute [facility] Work Phone: Evaluation note Note Date & Type Note Facility Evaluation note Diagnosis Onset Date Depression acute acute Supervision of normal acute Depression acute acute Supervision of normal acute Abnormal glucose affecting acute Depression acute Mild anemia acute acute Supervision of normal acute False labor before 37 comple [place] weeks of gestation resolved Abnormal glucose affecting acute Depression acute Mild anemia acute acute Supervision of normal acute Abnormal glucose affecting acute Depression acute Mild anemia acute acute Supervision of normal acute Abnormal glucose affecting acute Depression acute Mild anemia acute acute Supervision of normal acute Abnormal glucose affecting acute Depression acute Mild anemia acute acute Supervision of normal acute Abnormal glucose affecting acute Depression acute Mild anemia acute acute Supervision of normal acute Abnormal glucose affecting acute Depression acute Mild anemia acute acute Supervision of normal acute Abnormal glucose affecting acute Depression acute Mild anemia acute acute Supervision of normal acute Abnormal glucose affecting acute Depression acute Mild anemia acute acute Status post vaginal delivery acute Supervision of normal acute [facility] Work Phone: Evaluation note Note Date & Type Note Facility Evaluation note Diagnosis Onset Date Depression acute Depression acute Depression acute Mild anemia acute Abnormal glucose affecting resolved False labor before 37 comple [place] weeks of gestation resolved Depression acute Mild anemia acute Abnormal glucose affecting resolved Depression acute Mild anemia acute Abnormal glucose affecting resolved Depression acute Mild anemia acute Abnormal glucose affecting resolved Depression acute Mild anemia acute Abnormal glucose affecting resolved Depression acute Mild anemia acute Abnormal glucose affecting resolved Depression acute Mild anemia acute Abnormal glucose affecting resolved Depression acute Mild anemia acute Abnormal glucose affecting resolved Depression acute Mild anemia acute Abnormal glucose affecting resolved nipple pain nonea ctive Care and examination of lactating mother noneactive [facility] Work Phone: Evaluation note Note Date & Type Note Facility Evaluation note Diagnosis Onset Date Encounter for routine gyneco logical examination noneactive Immunization declined noneac tive Screening for cardiovascular condition noneactive Establishing care with new d bill, encounter for noneactive Lightheadedness noneactive 6 weeks gestation of noneactive Depression acute acute Supervision of high-risk acute [facility] Work Phone: Evaluation note Note Date & Type Note Facility Evaluation note Diagnosis Onset Date Encounter for routine gyneco logical examination noneactive Immunization declined noneac tive Screening for cardiovascular condition noneactive Establishing care with fran khan, encounter for noneactive Lightheadedness noneactive 6 weeks gestation of noneactive [facility] Work Phone: Reason for referral (narrative) Note Date & Type Note Facility Reason for referral (narrative) No reason for referral information available [facility] Work Phone: Summary Purpose Family History Relationship Condition Age at Onset Recorded Date/T latisha Not Specified Cardiac disease Unknown Hypertension Unknown Disorder of thyroid Unknown Relationship Condition Age at Onset Recorded Date/T latisha father Cardiac disease Unknown Hypertension Unknown aunt Disorder of thyroid Unknown Malignant neoplasm Unknown Advance Directives Advance Directive Response Recorded Date/ Time Living Will No July 06, 021 3:02pm Power of Manufacturing Engineering Director No July 06, 2021 3:02pm Advance Directive Response Recorded Date/ Time Living Will No March 12 2 6:52pm Power of Manufacturing Engineering Director No March 12 022 6:52pm Advance Directive Response Recorded Date/ Time Living Will No March 12 2 5:52pm Power of Manufacturing Engineering Director No March 12 022 5:52pm Chief Complaint and Reason for Visit Chief Complaint 13 WK OB 17 WK OB est ob 22w est ob 26w 1 HR GLUCOSE/NEED ORDER 28WK OB / GLUCOSE DECREASED MOVEMENT Reason for Visit Depression Supervision of normal Subchorionic hematoma Depression Supervision of normal Subchorionic hematoma Depression Supervision of normal Depression Supervision of normal Depression Supervision of normal Chief Complaint est ob 22w est ob 26w 1 HR GLUCOSE/NEED ORDER 28WK OB / GLUCOSE DECREASED MOVEMENT DECREASED MOVEMENT 30WK OB Failed 1 hour glucose test 32WK OB 34WK OB 36WK OB E ORDER Reason for Visit Depression Supervision of normal Depression Supervision of normal Depression Supervision of normal Abnormal glucose affecting Depression Mild anemia Supervision of normal False labor before 37 completed weeks of gestation Abnormal glucose affecting Depression Mild anemia Supervision of normal Abnormal glucose affecting Depression Mild anemia Supervision of normal Abnormal glucose affecting Depression Mild anemia Supervision of normal Abnormal glucose affecting Depression Mild anemia Supervision of normal Chief Complaint est ob 22w est ob 26w 1 HR GLUCOSE/NEED ORDER 28WK OB / GLUCOSE DECREASED MOVEMENT DECREASED MOVEMENT 30WK OB Failed 1 hour glucose test 32WK OB 34WK OB 36WK OB E ORDER 37WK OB Reason for Visit Depression Supervision of normal Depression Supervision of normal Depression Supervision of normal Abnormal glucose affecting Depression Mild anemia Supervision of normal False labor before 37 completed weeks of gestation Abnormal glucose affecting Depression Mild anemia Supervision of normal Abnormal glucose affecting Depression Mild anemia Supervision of normal Abnormal glucose affecting Depression Mild anemia Supervision of normal Abnormal glucose affecting Depression Mild anemia Supervision of normal Abnormal glucose affecting Depression Mild anemia Supervision of normal Chief Complaint est ob 26w 1 HR GLUCOSE/NEED ORDER 28WK OB / GLUCOSE DECREASED MOVEMENT DECREASED MOVEMENT 30WK OB Failed 1 hour glucose test 32WK OB 34WK OB 36WK OB E ORDER 37WK OB 38WK OB 39WK OB VAGINAL DELIVERY LABOR/DELIVERY VAGINAL DELIVERY VAGINAL DELIVERY Reason for Visit Depression Supervision of normal Depression Supervision of normal Abnormal glucose affecting Depression Mild anemia Supervision of normal False labor before 37 completed weeks of gestation Abnormal glucose affecting Depression Mild anemia Supervision of normal Abnormal glucose affecting Depression Mild anemia Supervision of normal Abnormal glucose affecting Depression Mild anemia Supervision of normal Abnormal glucose affecting Depression Mild anemia Supervision of normal Abnormal glucose affecting Depression Mild anemia Supervision of normal Abnormal glucose affecting Depression Mild anemia Supervision of normal Abnormal glucose affecting Depression Mild anemia Supervision of normal Abnormal glucose affecting Depression Mild anemia Status post vaginal delivery Supervision of normal Chief Complaint est ob 26w 1 HR GLUCOSE/NEED ORDER 28WK OB / GLUCOSE DECREASED MOVEMENT DECREASED MOVEMENT 30WK OB Failed 1 hour glucose test 32WK OB 34WK OB 36WK OB E ORDER 37WK OB 38WK OB 39WK OB VAGINAL DELIVERY LABOR/DELIVERY VAGINAL DELIVERY VAGINAL DELIVERY first baby, baby possible upper lip tie CONSULT Reason for Visit Depression Depression Depression Mild anemia Abnormal glucose affecting False labor before 37 completed weeks of gestation Depression Mild anemia Abnormal glucose affecting Depression Mild anemia Abnormal glucose affecting Depression Mild anemia Abnormal glucose affecting Depression Mild anemia Abnormal glucose affecting Depression Mild anemia Abnormal glucose affecting Depression Mild anemia Abnormal glucose affecting Depression Mild anemia Abnormal glucose affecting Depression Mild anemia Abnormal glucose affecting nipple pain Care and examination of lactating mother Chief Complaint Annual (WIRE COATER) 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 EST [facility] PT. 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 EST [facility] PT. Reason for Visit Encounter for routin e gynecological examination Immunization declined Screening for cardiovascular condition Establishing care with new doctor, encounter for Lightheadedness 6 weeks gestation of Chief Complaint Admit Date INS PHYSICAL October 22, 2024 2:5 3pm INT LAB ORDERS October 31, 2024 10:2 1am Reason for Visit Admit Date Immunization declined October 22, 2024 2 :53pm Screening for cardiovascular condition M arch 2024 2:53pm Annual physical exam October 22, 2024 2: 53pm Chief Complaint Admit Date INS PHYSICAL October 22, 2024 2:5 3pm INT LAB ORDERS October 31, 2024 10:2 1am L ANKLE INJURY February 08, 2025 12:0 1pm Additional Source Comments INFORMATION SOURCE (unrecogn ized section and content) DATE CREATED AUTHOR 06/10/2018 [facility] DATE CREATED AUTHOR AUTHOR'S ORGANIZ ATION 10/07/2023 [facility] DATE CREATED AUTHOR AUTHOR'S ORGANIZ ATION 11/04/2024 [facility] Goals (unrecognized section and content) Goals may be documented in a n alternate sectionGoals may be documented in an alternate sectionGoals may be documented in an alternate sectionGoals may be documented in an alternate sectionGoals may be documented in an alternate sectionGoals may be documented in an alternate sectionGoals may be documented in an alternate section Care Teams (unrecognized sec tion and content) Team Status: Active Member Role Status Dates No Primary Care Physician Family Provider Active Dr. Perez Marroquin MD Primary Care Provider Active Team Status: Inactive Member Role Status Dates Moe Ambriz CUSHION MAT MAKER, CUSHION MAT MAKER-C Referring Provider Active Dr. Mary Jo Toribio DO Attending Provider Activ e Team Status: Inactive Member Role Status Dates Dr. Perez Marroquin MD Attending Provider Active Team Status: Inactive Member Role Status Dates Dr. Perez Marroquin MD Primary Care Provider, Referri ng Provider Active Milton Palafox CNM Attending Provider Active Team Status: Inactive Member Role Status Dates Dr. Perez Marroquin MD Primary Care Pro vider, Attending Provider, Referring Provider Active Team Status: Inactive Member Role Status Dates Dr. Perez Marroquin MD Primary Care Provider Active Milton Palafox CNM Attending Provider, Referring Pr ovider Active Team Status: Inactive Member Role Status Dates Dr. Perez Marroquin MD Primary Care Provider Active Start: October 22, 2024 End: October 22, 2024 Dr. Perez Marroquin MD Attending Provider Active Start: October 22, 2024 End: October 22, 2024 Dr. Perez Marroquin MD Referring Provider Active Start: October 22, 2024 End: October 22, 2024 Team Status: Inactive Member Role Status Dates Dr. Perez Marroquin MD Primary Care Provider Active Start: October 31, 2024 End: October 31, 2024 Dr. Perez Marroquin MD Attending Provider Active Start: October 31, 2024 End: October 31, 2024 Dr. Perez Marroquin MD Referring Provider Active Start: October 31, 2024 End: October 31, 2024 Team Status: Active Member Role/Relationship Status Dates Dr. Perez Marroquin MD Primary Care Provider Active Team Status: Inactive Member Role/Relationship Status Dates Dr. Perez Marroquin MD Primary Care Provider Active Start: October 22, 2024 End: October 22, 2024 Dr. Perez Marroquin MD Attending Provider Active Start: October 22, 2024 End: October 22, 2024 Dr. Perez Marroquin MD Referring Provider Active Start: October 22, 2024 End: October 22, 2024 Team Status: Inactive Member Role/Relationship Status Dates Dr. Perez Marroquin MD Primary Care Provider Active Start: October 31, 2024 End: October 31, 2024 Dr. Perez Marroquin MD Attending Provider Active Start: October 31, 2024 End: October 31, 2024 Dr. Perez Marroquin MD Referring Provider Active Start: October 31, 2024 End: October 31, 2024 Team Status: Active Member Role/Relationship Status Dates Dr. Perez Marroquin MD Primary Care Provider Active Start: February 08, 2025 SPENCER Simeon Attending Provider Active Sta rt: February 08, 2025 SPENCER Simeon Referring Provider Active Sta rt: February 08, 2025 Team Status: Inactive Member Role/Relationship Status Dates Dr. Perez Marroquin MD Primary Care Provider Active Start: February 08, 2025 End: February 08, 2025 Dr. Perez Marroquin MD Referring Provider Active Start: February 08, 2025 End: February 08, 2025 SPENCER Simeon Attending Provider Active Sta rt: February 08, 2025 End: February 08, 2025 FOR RECORDS PERTAINING TO PATIENTS WHO ARE OR HAVE BEEN ENROLLED IN A CHEMICAL DEPENDENCY/SUBSTANCEABUSE PROGRAM, SOME INFORMATION MAY BE OMITTED. This clinical summary was aggregated from multiple sources. Caution should be exercised in using it in the provision of clinical care. This summary normalizes information from multiple sources, and as a consequence, information in this document may materially change the coding, format and clinical context of patient data. In addition, data may be omitted in some cases. CLINICAL DECISIONS SHOULD BE BASED ON THE PRIMARY CLINICAL RECORDS. [facility] [employer] provides no warranty or guarantee of the accuracy or completeness of information in this document.
== END | disposition home or self-care (01) ==
LOC: MTRAD 11:43
PROVIDERS: PCP Internal Medicine; Referring Provider Physician Assistant Surgical; Visit Provider Physician Assistant Surgical
DX: S99.919A Unspecified injury of unspecified ankle, initial encounter (principal)
CPT/HCPCS: 73610